=== PATIENT | male | born 1960 | race Caucasian/White ===

== ENCOUNTER 2017-04-14 04:11 | Inpatient (IN) ==
[2017-04-14 04:54] LABS: Bilirubin,Urine Negative (Negative); Blood,Urine Negative (Negative); Clarity,Urine Clear (Clear); Color,Urine Yellow (Yellow); Glucose,Urine (UA) Normal (Normal); Ketones,Urine Negative (Negative); Leukocyte Esterase,Urine Negative (Negative); Nitrite,Urine Negative (Negative); Protein,Urine Negative (Neg-Trace); Specific Gravity,Urine 1.016 (1.010-1.025); Urobilinogen,Urine Normal (Normal)
[2017-04-14 05:03] LABS: Basophils % 0.3 %; Eosinophils # 0.1 K/mcL (0.0-0.6); Eosinophils % 0.8 %; Hemoglobin 13.8 g/dL (12.9-16.9); Immature Granulocytes % 0.5 % (0-4); Lymphocytes # 1.6 K/mcL (0.6-4.6); Lymphocytes % 13.6 %; Mean Corpuscular HGB Conc 32.9 g/dL (31.6-35.5); Mean Corpuscular Hemoglobin 28.3 pg (28.0-33.3); Mean Corpuscular Volume 86.2 fL (83.0-100.0); Mean Platelet Volume 10.1 fL (9.4-12.4); Monocytes % 8.2 %; Platelet Count 211 K/mcL (140-400); Red Blood Count 4.87 M/mcL (4.19-5.50); Red Cell Distribution Width 13.2 % (11.5-14.5); Segmented Neutrophils % 76.6 %
--- NOTE | 2017-04-14 05:13 | Emergency Department Note ---
Disposition Clinical Impression: Acute appendicitis Qualifiers: Acute appendicitis type: with localized peritonitis Qualified Code(s): K35.3 - Acute appendicitis with localized peritonitis Disposition: Admitted As Inpatient Condition: Good Time of Disposition: 06:18 General Adult HPI - General Chief complaint: ED Abdominal Pain Stated complaint: "Abd Pain" Time Seen by Provider: 04/14/17 04:19 Source: patient, family Mode of arrival: ambulatory Limitations: no limitations Nursing Notes Reviewed: Yes Vital Signs Reviewed: Yes - History of Present Illness HPI Narrative: 56-year-old male presenting to the emergency department for right lower quadrant pain. He states for the past 2 days he has had an aching sharp pain located in his diffuse lower abdominal pain in a band like fashion. The pain has progressively been getting worse and as a 7 out of 10. It has now located mostly to the right lower quadrant. He has no history of abdominal surgeries in the past. He did have one episode of emesis yesterday. It was non-bilious and nonbloody. He has been feeling nauseous over the past 2 days that is does not experience this now. He has normal bowel movements and normal appetite. He did not try any treatments for this at home. Pain Scale: 7 - Related Data Home Medications Medication Instructions Recorded Confirmed Calcium Carbonate [Tums] 1,000 mg PO Q4HR PRN 04/14/17 04/14/17 Allergies Allergy/AdvReac Type Severity Reaction Status Date / Time No Known Allergies Allergy Verified 04/14/17 04:14 All systems ED: reviewed and negative except as stated. Gastrointestinal: Reports: abdominal pain, nausea, vomiting Past Medical History - Past Medical History Attestation: Yes The following information was validated with the patient. Source: patient Medical history: Reports: no medical history - Social History Smoking Status: Never smoker Smokeless Tobacco Status: No Alcohol use: Reports: occasionally Drug use: Reports: none Physical Exam - General Limitations: no limitations General appearance: alert, in no apparent distress - Head Head exam: atraumatic, normocephalic - Eye Eye exam: Present: normal appearance - Chest Chest inspection: Present: normal inspection, symmetric chest wall rise. Absent : tenderness - Respiratory Respiratory exam: Present: normal lung sounds bilaterally. Absent: respiratory distress, wheezes, stridor - Cardiovascular Cardiovascular exam: Present: regular rate, normal rhythm, normal heart sounds - Abdominal Exam Abdominal exam: Present: soft, tenderness (Mostly over the RLQ, extends in a band like fashion across the entire lower abdomen), guarding, rebound, tenderness at McBurney's Point. Absent: distention, rigidity, obturator sign, Rovsing's sign Abdominal tenderness: Present: RLQ - Extremities Exam Extremities exam: Present: normal inspection, full ROM - Neurological Exam Neurological exam: Present: alert, oriented X3 - Psychiatric Psychiatric exam: Present: normal affect - Skin Skin exam: Present: warm, dry, intact Course Course Narrative: 56-year-old male presenting to the emergency Department right lower quadrant pain due to his physical exam we will obtain a CT with IV contrast, CBC, BMP. - Reevaluation(s) Reevaluation #1: On CT acute appendicitis was seen. We put a call out to the on-call surgeon Dr. Cano. He has accepted the patient. Time: 06:17 Vital Signs Temperature 98.1 F 04/14/17 04:13 Pulse Rate 87 04/14/17 04:13 Respiratory Rate 18 04/14/17 04:13 Blood Pressure 168/102 04/14/17 04:13 O2 Sat by Pulse Oximetry 96 04/14/17 04:13 Temperature 98.5 F 04/17/17 11:42 Pulse Rate 90 04/17/17 11:42 Respiratory Rate 18 04/17/17 11:42 Blood Pressure 133/77 04/17/17 11:42 O2 Sat by Pulse Oximetry 93 04/17/17 11:42 Oxygen Delivery Oxygen Delivery Room Air Medical Decision Making - Medical Records Medical records reviewed: Yes I reviewed the patient's medical records. - Lab Data Lab results reviewed: Yes I reviewed the patient's lab results. Result diagrams: 04/17/17 03:55 04/16/17 04:36 Lab Results 04/14/17 04/14/17 04/14/17 Range/Units 04:40 04:55 04:55 WBC 11.7 H (4.3-11.1) K/mcL RBC 4.87 (4.19-5.50) M/mcL Hgb 13.8 (12.9-16.9) g/dL Hct 42.0 (37.5-50.1) % MCV 86.2 (83.0-100.0) fL MCH 28.3 (28.0-33.3) pg MCHC 32.9 (31.6-35.5) g/dL RDW 13.2 (11.5-14.5) % Plt Count 211 (140-400) K/mcL MPV 10.1 (9.4-12.4) fL Immature Gran % 0.5 (0-4) % Seg Neutrophils % 76.6 % Lymphocytes % 13.6 % Monocytes % 8.2 % Eosinophils % 0.8 % Basophils % 0.3 % Neutrophils # 9.0 H (1.6-8.9) K/mcL Lymphocytes # 1.6 (0.6-4.6) K/mcL Monocytes # 1.0 (0.0-1.3) K/mcL Eosinophils # 0.1 (0.0-0.6) K/mcL Basophils # 0.0 (0.0-0.2) K/mcL Sodium 136 (136-145) mEq/L Potassium 4.3 (3.5-4.5) mEq/L Chloride 102 (98-109) mEq/L Carbon Dioxide 26 (19-29) mEq/L BUN 11 (8-26) mg/dL Creatinine 0.85 (0.72-1.25) mg/dL Est GFR ( Amer) > 60 (> 60) Est GFR (Non-Af Amer) > 60 (> 60) BUN/Creatinine Ratio 13 (6-26) Glucose 116 H (70-99) mg/dL Calculated Osmolality 282 (280-300) Calcium 9.8 (8.6-10.8) mg/dL Urine Color Yellow (Yellow) Urine Clarity Clear (Clear) Urine pH 7.0 (5.0-8.0) pH Units Ur Specific Council 1.016 (1.010-1.025) Urine Protein Negative (Neg-Trace) mg/dL Urine Glucose (UA) Normal (Normal) mg/dL Urine Ketones Negative (Negative) mg/dL Urine Blood Negative (Negative) Urine Nitrite Negative (Negative) Urine Bilirubin Negative (Negative) Urine Urobilinogen Normal (Normal) mg/dL Ur Leukocyte Esterase Negative (Negative) Ur Culture Indicated? NO (NO) - Radiology Data Radiology results reviewed: Yes I reviewed the patient's radiology results. Attestation Statement - Attestation Attestation: I, Jc Castellano, examined this patient and my medical decision-making was reviewed with the TELEVISION ANTENNA INSTALLER/PA/Advanced Practice Nurse/Resident Physician. I agree with the documented findings, disposition and treatment plan as described except to the extent set forth below. 56-year-old male presents with concerns of right lower quadrant abdominal pain. Patient states pain is worsening over the past 2 days. Pain does not radiate from the right lower quadrant. On physical exam the patient has significant tenderness to palpation of the right lower quadrant with moderate guarding. CT of the abdomen and pelvis was performed which showed acute appendicitis. Resident spoke with Dr. cano who accepted the patient. Patient is comfortable with plan for admission to the hospital for likely surgery of his appendix.
[2017-04-14 05:17] LABS: BUN/Creatinine Ratio 13 (6-26); Blood Urea Nitrogen 11 mg/dL (8-26); Calcium 9.8 mg/dL (8.6-10.8); Carbon Dioxide 26 mEq/L (19-29); Chloride 102 mEq/L (98-109); Glucose 116 mg/dL (70-99); Osmolality,Calculated 282 (280-300); Potassium 4.3 mEq/L (3.5-4.5); Sodium 136 mEq/L (136-145); eGFR For African Americans > 60 (> 60); eGFR For Non-African Americans > 60 (> 60)
[2017-04-14] MEDS ORDERED: *HR* Morphine 2 MG/ML SYRINGE IVP ONE (05:44)
[2017-04-14] MEDS ORDERED: Bupivacaine/EPI 1:200k 0.25%PF 30 ML VIAL ONE (06:40)
[2017-04-14] MEDS ORDERED: *HR* Propofol 200 MG/20 ML VIAL IVP ONE (06:53)
[2017-04-14] MEDS ORDERED: *HR* FentaNYL (PF) 100 MCG/2 ML VIAL ONE (06:54)
[2017-04-14] MEDS ORDERED: Lidocaine -MPF 2% 2 ML VIAL ONE (06:54)
[2017-04-14] MEDS ORDERED: *HR* Rocuronium Bromide 50 MG/5 ML VIAL ONE (06:54)
[2017-04-14] MEDS ORDERED: *HR* Succinylcholine 200 MG/10 ML VIAL IVP ONE (06:54)
[2017-04-14] MEDS ORDERED: *HR* Midazolam HCl 2 MG/2 ML VIAL ONE (06:54)
[2017-04-14] MEDS ORDERED: Lidocaine -MPF 4% 5 ML AMPUL ONE (06:54)
--- NOTE | 2017-04-14 07:24 | Anesthesia Evaluation PreOp ---
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 Significant HX Other Medical History: Denies Any Significant HX, GERD (Hiatal Hernia) Anesthesia History: No Prior Anesthetic Complications Alcohol Use: occasionally Drug use: none Medications and Allergies Calcium Carbonate [Tums] 1,000 mg PO Q4HR PRN 04/14/17 [History] Allergies No Known Allergies Allergy (Verified 04/14/17 04:14) Anesthesia Results - Labs 04/14/17 04:55 04/14/17 04:55 Anesthesia Exam vss Weight: 93kg NPO (# of Hours): 8 Pain Scale: 2 Pain Scale Used: Numeric (1 - 10) - HEENT Pupil (Motor): Pupils equal Mallampati: II Teeth: Normal Oral Opening: Greater than 3 - THREAD PULLING MACHINE ATTENDANT THREAD PULLING MACHINE ATTENDANT Motor: Normal RUE, Normal LUE, Normal RLE, Normal LLE, Normal Face THREAD PULLING MACHINE ATTENDANT Sensory: Normal: RUE, LUE, RLE, LLE, Face - Cardiac Rhythm: Regular - Pulmonary Breath Sounds: bilateral Clear Anesthesia Assess/Plan ASA Score: 2, E Modified [place] Scale for Level of Consciousness: Cooperative, oriented, and tranquil Anesthetic Plan: General Autologous Blood: No Monitoring Plan: Standard Monitors Recovery Plan: PACU
--- NOTE | 2017-04-14 07:30 | General Surg History&Physical ---
Date of Encounter: 04/14/17 Time of Encounter: 06:50 History of Present Illness Chief complaint: Right lower quadrant abdominal pain, acute appendicitis HPI: Mr. Muse is a 56 year old male presents to [facility] EGD with 2 day history of progressive right lower quadrant abdominal pain. The patient described emesis yesterday but no recurrence last evening or this morning in the emergency department. Symptoms have progressed in severity prompting the patient to seek medical attention. The patient was found to be acutely tender in the right lower quadrant, white count was minimally elevated at 11.7, and CT demonstrated a markedly dilated appendix with stones and significant periappendiceal and pericecal fat stranding consistent with acute appendicitis. Past medical history: Unremarkable, there is no acknowledged history of retention, diabetes, heart or lung disease. Surgical history: None Allergies: No known drug allergies Medications: None History: Patient is , lives with spouse; he is a former smoker indicating that he quit smoking in 1997. He indicates prior history of 2-2-1/2 packs daily for approximately 15 years. The patient admits to consuming alcohol 3 days a week; he denies any illicit drug use On physical examination: Age-appropriate male in no acute distress, resting comfortably in his ED bed. He is 1.75 m tall, 93.8 kg, BMI 30.5 Skin: Warm, no obvious jaundice Lungs: Clear bilaterally; no obvious pain on deep inspiration Cardiac: Regular rate, no appreciable murmurs Abdomen: Slightly protuberant, tender in the right lower quadrant, minimal right lower quadrant abdominal pain when palpating the left lower quadrant. Hypoactive bowel sounds. No appreciable intra-abdominal masses. Extremities: Without clubbing, cyanosis, or edema. Laboratories: Her count 11.7, hemoglobin 13.8, hematocrit 42.0. Platelet count 211,000. Neutrophils notably elevated at 9% Electrolytes, BUN, creatinine within normal limits. Urinalysis is unremarkable. CT: Was personally reviewed Impression: 56-year-old male with new onset right lower quadrant abdominal pain. Clinical and radiologic findings consistent with acute appendicitis. Surgery has been recommended. The patient is a reasonable candidate for laparoscopic appendectomy but understands an open appendectomy may become necessary. Risks of surgery include hemorrhage, infection, intra- abdominal abscess, injury to adjacent structures such as bowel, bladder, ureters, etc. if a normal appendix is encountered, it will be removed. The patient and his expressed understanding. Consent has been obtained. Past Med Surg Social Fam HX - Past Medical History Medical history: no medical history - Social History Smoking Status: Never smoker Smokeless Tobacco Status: No Alcohol use: occasionally Drug use: none Medications and Allergies Calcium Carbonate [Tums] 1,000 mg PO Q4HR PRN 04/14/17 [History] Allergies No Known Allergies Allergy (Verified 04/14/17 04:14) Review of Systems All systems PM: A 10-system review of systems was performed and is negative for pertinent findings except as documented above in the HPI. General Surgery Exam Initial Vital Signs Temp Pulse Resp BP Pulse Ox 98.1 F 87 18 168/102 96 04/14/17 04:13 04/14/17 04:13 04/14/17 04:13 04/14/17 04:13 04/14/17 04:13 Results - Labs 04/14/17 04:55 04/14/17 04:55 Abnormal lab results WBC 11.7 K/mcL (4.3-11.1) H 04/14/17 04:55 Neutrophils # 9.0 K/mcL (1.6-8.9) H 04/14/17 04:55 Glucose 116 mg/dL (70-99) H 04/14/17 04:55 All other labs normal.
[2017-04-14] MEDS ORDERED: CefOXitin 2,000 MG VIAL IVPB ONE (07:39)
[2017-04-14] MEDS ORDERED: *HR* HYDROmorphone (PF) 1 MG/ML SYRINGE IVP PRN (07:54)
[2017-04-14] MEDS ORDERED: *HR* Promethazine 25 MG/ML VIAL IVP PRN (07:54)
[2017-04-14] MEDS ORDERED: Albuterol 2.5 MG/3 ML NEBULIZER IH PRN (07:54)
[2017-04-14] MEDS ORDERED: Neostigmine Methylsulfate 3 MG/3 ML SYRINGE ONE (08:08)
[2017-04-14] MEDS ORDERED: Ketorolac 30 MG/ML VIAL ONE (08:09)
[2017-04-14] MEDS ORDERED: Bupivacaine/EPI 1:200k 0.25%PF 10 ML VIAL INFILT ONE (08:17)
[2017-04-14] MEDS ORDERED: *HR* HYDROmorphone 2 MG/ML SYRINGE ONE (08:39)
--- NOTE | 2017-04-14 09:34 | Operative Note ---
Date of procedure: 04/14/17 Pre-op diagnosis: acute appendicitis Post-op diagnosis: other (acute perforated appendicitis) Procedure: laparoscopy, open appendectomy Complications: none apparent Anesthesia: GETA Local Anesthetics: 0.25% Sensorcaine HCL with Epinephrine 1:200,000 SubQ (cc) ( 50mL) Surgeon: Jcarlos Cruz Estimated blood loss (cc): 10 IV fluids (cc): 750 Specimen: appendix; aerobic and anaerobic cultures Condition: stable Disposition: PACU Procedure in Detail: The patient was brought to the operating room where he was placed supine upon the operating room table. The patient was appropriately identified as to person and procedure. The accuracy of this information was confirmed by the procedure team. The patient was then intubated and anesthetized under the supervision of Dr. Jared Morgan. The abdomen was examined under anesthesia with no palpable masses detected. The abdomen was then prepped and draped in the usual sterile fashion. Several milliliters of 0.25% bupivacaine with 1-200, 000 epinephrine was infiltrated locally. A small transverse incision was made, dissection was distended to the fascia. Additional bupivacaine with epinephrine was infiltrated. The fascia was grasped, elevated, and incised. An 11 mm Xcel port was established. The rigid laparoscope was placed within the obturator to visualize passage through the layers of the anterior abdominal wall. Once the abdominal cavity was accessed, the obturator was replaced by the rigid laparoscope and the abdomen was insufflated with gaseous carbon dioxide. There was no obvious visible injury from establishing the port. Under direct visualization a 5 mm port was placed in the superpubic midline, a 12 mm port was established in the left lower quadrant midclavicular line. Both of these sites were infiltrated with the bupivacaine with epinephrine solution. The cecum was identified, grasped and elevated with a 5 mm endoscopic [place]. An acutely inflamed, necrotic appendix was identified in its usual anatomic location. The cecum demonstrated adjacent inflammatory changes. The majority of the inflammation was at the junction of the appendix with the cecum. With minimal manipulation, pus was evident exiting the appendix at its junction with the cecum. This prompted me to abandon the laparoscopic approach. The pneumoperitoneum was evacuated, the laparoscopic instrumentation removed. Several milliliters of 0.25% bupivacaine with 1-200,000 units epinephrine was infiltrated into a planned transverse incision just cephalad and medial to the anterior superior iliac spine, right lower quadrant. The skin was incised with dissection ended to the aponeurosis of the external oblique. Bleeding points were controlled electrocautery. The aponeurosis external oblique was then incised transversely, the underlying musculature was split in the direction of its fibers. The transversalis fascia was identified, grasped with 2 Krystal clamps and elevated. The fascia was incised allowing atraumatic entry into the abdominal cavity. The cecum was mobilized along with the appendix. The appendix was eventually exteriorized. The perforation was again verified adequate the junction between the cecum and the appendix. Aerobic and anaerobic cultures discharge at this location were obtained. The mesial appendix was divided between curved hemostats and ligated with 3-0 silk. The appendix was transected at its junction with the cecum. The cecal wall was inflamed and thickened, precluding the use of a TX 30 mm stapler. The appendiceal orifice was suture-ligated with several interrupted 3-0 silk. The entire area and right paracolic gutter were irrigated with sterile saline which was evacuated with the suction device. Hemostasis was adequate and the appendiceal orifice suture line appeared healthy/intact. The small bowel was examined with no other abnormalities encountered. The cecum was returned to its usual anatomic location. Closure was then accomplished in layers, the peritoneum was closed with a running interlocking 0 Vicryl. The posterior rectus sheath was closed with running interlocking 0 Vicryl. The anterior rectus sheath and the aponeurosis of the external oblique was closed with interrupted [id number] 0 Vicryl. Each of the layers was infiltrated with several milliliters of 0.25% bupivacaine with 1-200,000 epinephrine after completion of the closure. The subcutaneous tissue was irrigated with warm sterile saline and approximated with 3-0 Vicryl. The skin edges of the transverse incision were approximated with isrrael. The port sites created for the laparoscopic portion was procedure were closed with subcuticular 4-0 Vicryl and sealed with Dermabond dermal adhesive. I should make note that the fascia of the infraumbilical opening was closed with an interrupted [id number] 0 Vicryl with a gloved hand placed intra-abdominally to protect the intra- abdominal contents. A dry sterile dressing was applied to the transverse incision. The patient was taken to recovery in stable condition. Needle, sponge, and instrument counts were correct at the close of the case. Total volume of 0.25% bupivacaine with 1-200,000 units epinephrine used during this procedure, 50 mL. The appendix, aerobic and anaerobic cultures were sent to lab.
[2017-04-14] MEDS ORDERED: Ondansetron 4 MG/2 ML VIAL IVP PRN (09:38)
[2017-04-14] MEDS ORDERED: Acetaminophen 325 MG TABLET PO PRN (09:38)
[2017-04-14] MEDS ORDERED: Piperacillin/Tazobactam 3.375 GM in D5% in Water (Mini-Bag+) 100 ML IVPB STA (09:38)
[2017-04-14] MEDS ORDERED: Ringers Solution, Lactated 1,000 ML ONE (09:46)
--- NOTE | 2017-04-14 10:11 | Anesthesia Evaluation Post Op ---
Date of Encounter: 04/14/17 Time of Encounter: 10:11 - Vital Signs Vital Signs: Vital Signs/O2 Sat, Most Current Temp Pulse Resp BP Pulse Ox 97.7 F 77 16 121/78 94 04/14/17 09:28 04/14/17 09:48 04/14/17 09:48 04/14/17 09:48 04/14/17 09:48 - Lungs Lungs: Clear Ascult./Percussion - Airway Airway: Non-obstructed - Cardiovascular Regular Rate - Mental Status Mental Status: Alert & Oriented, Answers Appropriately - Pain Pain Scale: 0 Pain Scale used: Numeric (1 - 10) - Nausea Vomiting Nausea Vomiting: Not Present - Hydration Hydration: NPO, Has not voided - Discharge PostOp Status: Transfer Patient to floor
[2017-04-14] MEDS: *HR* HYDROmorphone (PF) 1 MG/ML SYRINGE IVP PRN ×3 (10:50→23:58)
[2017-04-14] MEDS ORDERED: Ringers Solution, Lactated 500 ML IVC ONE (11:32)
[2017-04-14] MEDS: Ringers Solution, Lactated 1,000 ML IVC SCH (11:38)
[2017-04-14] MEDS: *HR* OxyCODONE/APAP 5/325 TABLET PO PRN ×2 (13:56→19:58)
[2017-04-14] MEDS: Piperacillin/Tazobactam 3.375 GM in D5% in Water (Mini-Bag+) 100 ML IVPB SCH (15:49)
[2017-04-14] MEDS ORDERED: Pantoprazole 40 MG VIAL IVP ONE (19:47)
[2017-04-15] MEDS: Ringers Solution, Lactated 1,000 ML IVC SCH ×2 (00:02→09:46)
[2017-04-15] MEDS: Piperacillin/Tazobactam 3.375 GM in D5% in Water (Mini-Bag+) 100 ML IVPB SCH ×3 (00:02→16:12)
[2017-04-15] MEDS: *HR* OxyCODONE/APAP 5/325 TABLET PO PRN ×3 (03:11→15:13)
[2017-04-15 06:30] LABS: Hematocrit 35.7 % (37.5-50.1); Mean Corpuscular HGB Conc 33.3 g/dL (31.6-35.5); Mean Corpuscular Hemoglobin 29.3 pg (28.0-33.3); Mean Corpuscular Volume 87.9 fL (83.0-100.0); Mean Platelet Volume 11.2 fL (9.4-12.4); Platelet Count 191 K/mcL (140-400); Red Blood Count 4.06 M/mcL (4.19-5.50); Red Cell Distribution Width 13.5 % (11.5-14.5)
[2017-04-15 06:40] LABS: Hemoglobin 11.9 g/dL (12.9-16.9)
[2017-04-15] MEDS: *HR* HYDROmorphone (PF) 1 MG/ML SYRINGE IVP PRN ×2 (07:28→14:00)
[2017-04-15 07:34] LABS: Monocytes # 0.2 K/mcL (0.0-1.3); Neutrophils # 8.4 K/mcL (1.6-8.9); Platelet Estimate Normal (Normal)
[2017-04-15] MEDS: Pantoprazole 40 MG VIAL IVP SCH (08:12)
[2017-04-15] MEDS: Albuterol 2.5 MG/3 ML NEBULIZER IH SCH ×3 (16:07→23:05)
--- NOTE | 2017-04-15 18:12 | General Surgery Progress Note ---
Date of Encounter: 04/15/17 Time of Encounter: 17:15 Subjective Patient reports: feels better, still having pain Narrative: General Surgery - POD #1 Afebrile, maximum temperature 99.0; pulse 90, respirations 16, blood pressure 119/72. Lungs: Rales in the right base, moderate inspiratory effort but weak, ineffective cough. Chest x-ray shows right middle and right lower lobe infiltrates. Likely due to recent surgery for an acutely perforated appendicitis Abdomen: Soft, hypoactive bowel sounds. Port sites and incision clean and dry. Dressings removed. Urine output 2100 mL since surgery Laboratories: White count 11.7, hemoglobin 11.9, hematocrit 35.7, platelet count 191,000. Pathology pending Impression: Postoperative day 1, status post laparoscopy converted to open appendectomy for acutely perforated appendicitis Postoperative atelectasis with audible rales and radiologic evidence of right -sided infiltrates Patient encouraged to increase incentive spirometry; increase activity out of bed; will add aerosols. Continue IV antibiotics Objective Vital Signs - Last 8 Hours Temp Pulse Resp BP Pulse Ox 04/15/17 16:09 16 96 04/15/17 14:30 99 F 90 16 119/72 94 04/15/17 10:50 98.2 F 76 17 130/76 94 Intake and Output 04/15/17 04/15/17 04/15/17 07:59 15:59 23:59 Intake Total 1150 / 1150 2060 / 2060 Output Total 500 / 500 900 / 900 700 / 700 Balance 650 / 650 1160 / 1160 -700 / -700 Intake: IV Fluids 1150 / 1150 1000 / 1000 Lactated Ringers 1,000 ML 950 / 950 900 / 900 @ 100 mls/hr IVC .Q10H DARLENE Rx#:[id number] Zosyn 3.375 GM In 200 / 200 100 / 100 Dextrose 5% (Minibag+) 100 ML 100 ML @ 25 mls/hr IVPB Q8H DARLENE Rx#: [id number] Oral 0 / 0 1060 / 1060 Output: Urine 500 / 500 900 / 900 700 / 700 Other: Percent of Meal Consumed 0% Weight 93.44 kg Patient Weight 04/15/17 23:59 Weight 93.44 kg - Labs 04/15/17 05:03 04/14/17 04:55 - VTE Documentation of Mechanical Device: Intermittent pneumatic compression device Consult Discharge Plan - Plan Referrals: Jcarlos Cruz MD [Non-Partnered Physician] -
[2017-04-15] MEDS: *HR* OxyCODONE/APAP 10/325 TABLET PO PRN (21:48)
[2017-04-15] MEDS: D5% in 0.45% NACL 1,000 ML IVC SCH (21:49)
[2017-04-16] MEDS: Piperacillin/Tazobactam 3.375 GM in D5% in Water (Mini-Bag+) 100 ML IVPB SCH ×4 (00:06→23:40)
[2017-04-16] MEDS: *HR* HYDROmorphone (PF) 1 MG/ML SYRINGE IVP PRN ×3 (00:21→13:25)
[2017-04-16] MEDS: Albuterol 2.5 MG/3 ML NEBULIZER IH SCH ×6 (03:00→23:14)
[2017-04-16] MEDS: *HR* OxyCODONE/APAP 10/325 TABLET PO PRN ×3 (04:05→18:37)
[2017-04-16 05:22] LABS: Basophils % 0.2 %; Eosinophils % 0.4 %; Hematocrit 34.5 % (37.5-50.1); Hemoglobin 10.9 g/dL (12.9-16.9); Immature Granulocytes % 0.6 % (0-4); Lymphocytes # 1.3 K/mcL (0.6-4.6); Lymphocytes % 14.5 %; Mean Corpuscular HGB Conc 31.6 g/dL (31.6-35.5); Mean Corpuscular Hemoglobin 28.2 pg (28.0-33.3); Mean Corpuscular Volume 89.1 fL (83.0-100.0); Mean Platelet Volume 10.3 fL (9.4-12.4); Monocytes # 0.7 K/mcL (0.0-1.3); Monocytes % 7.3 %; Neutrophils # 6.9 K/mcL (1.6-8.9); Platelet Count 194 K/mcL (140-400); Red Blood Count 3.87 M/mcL (4.19-5.50); Red Cell Distribution Width 13.5 % (11.5-14.5)
[2017-04-16 05:46] LABS: BUN/Creatinine Ratio 11 (6-26); Blood Urea Nitrogen 12 mg/dL (8-26); Calcium 8.6 mg/dL (8.6-10.8); Carbon Dioxide 28 mEq/L (19-29); Chloride 100 mEq/L (98-109); Glucose 117 mg/dL (70-99); Osmolality,Calculated 279 (280-300); Sodium 134 mEq/L (136-145); eGFR For African Americans > 60 (> 60); eGFR For Non-African Americans > 60 (> 60)
[2017-04-16] MEDS: Pantoprazole 40 MG VIAL IVP SCH (09:06)
[2017-04-16] MEDS: D5% in 0.45% NACL 1,000 ML IVC SCH (12:33)
--- NOTE | 2017-04-16 13:47 | General Surgery Progress Note ---
Date of Encounter: 04/16/17 Time of Encounter: 13:40 Subjective Narrative: General Surgery - POD #2 Patient feels better but passing no flatus; no BM Afebrile, her only 98.3, pulse 98 (after a walk around the nursing unit); respiration 16, blood pressure 132/74. Lungs: Persistent rales right base improved with better inspiratory effort. Cardiac: Regular rate, no appreciable murmurs Abdomen: Distended, quiet. Incisions clean and dry. Urine output: 2750 mL for calendar day 04/15/17; 1550 mL so far today. Labs: White count has returned to normal, 8.9; hemoglobin 10.9 and hematocrit 34.5 - likely due to dilutional effects (nola operative fluids) Sodium 134 otherwise electrolytes BUN and creatinine within normal limits. Pathology pending Impression: Postoperative day 2, does post laparoscopy converted to open appendectomy for acute perforated appendicitis. Very little bowel activity detected - maintain a clear liquid diet until bowel activity improves. patient has increased activity out of bed - this should help restore bowel activity atelectasis right lower and right middle lobes - continue activity OOB and incentive spirometry. Objective Vital Signs - Last 8 Hours Temp Pulse Resp BP Pulse Ox 04/16/17 11:00 98.3 F 98 16 132/74 94 04/16/17 08:26 16 89 04/16/17 07:11 98.5 F 89 16 104/66 93 Intake and Output 04/15/17 04/16/17 04/16/17 23:59 07:59 15:59 Intake Total 220 / 220 101 / 101 1000 / 1000 Output Total 1350 / 1350 1550 / 1550 Balance -1130 / -1130 -1449 / -1449 1000 / 1000 Intake: IV Fluids 100 / 100 100 / 100 1000 / 1000 D5% And 0.45% Nacl 1000 1000 / 1000 Ml Bag 1,000 ML @ 60 mls/ hr IVC .[id number] DARLENE Rx#: [id number] Zosyn 3.375 GM In 100 / 100 100 / 100 Dextrose 5% (Minibag+) 100 ML 100 ML @ 25 mls/hr IVPB Q8H DARLENE Rx#: [id number] Oral 120 / 120 1 / 1 Output: Urine 1350 / 1350 1550 / 1550 Other: Percent of Meal Consumed 0% Weight 93.395 kg Patient Weight 04/16/17 23:59 Weight 93.395 kg - Labs 04/16/17 04:36 04/16/17 04:36 Diabetes panel 04/16/17 Range/Units 04:36 Sodium 134 L (136-145) mEq/L Potassium 4.0 (3.5-4.5) mEq/L Chloride 100 (98-109) mEq/L Carbon Dioxide 28 (19-29) mEq/L BUN 12 (8-26) mg/dL Creatinine 1.05 (0.72-1.25) mg/dL Glucose 117 H (70-99) mg/dL Calcium 8.6 (8.6-10.8) mg/dL Calcium panel 04/16/17 Range/Units 04:36 Calcium 8.6 (8.6-10.8) mg/dL Pituitary panel 04/16/17 Range/Units 04:36 Sodium 134 L (136-145) mEq/L Potassium 4.0 (3.5-4.5) mEq/L Chloride 100 (98-109) mEq/L Carbon Dioxide 28 (19-29) mEq/L BUN 12 (8-26) mg/dL Creatinine 1.05 (0.72-1.25) mg/dL Glucose 117 H (70-99) mg/dL Calcium 8.6 (8.6-10.8) mg/dL Adrenal panel 04/16/17 Range/Units 04:36 Sodium 134 L (136-145) mEq/L Potassium 4.0 (3.5-4.5) mEq/L Chloride 100 (98-109) mEq/L Carbon Dioxide 28 (19-29) mEq/L BUN 12 (8-26) mg/dL Creatinine 1.05 (0.72-1.25) mg/dL Glucose 117 H (70-99) mg/dL Calcium 8.6 (8.6-10.8) mg/dL - VTE Documentation of Mechanical Device: Intermittent pneumatic compression device Consult Discharge Plan - Plan Referrals: Jcarlos Cruz MD [Non-Partnered Physician] -
[2017-04-16] MEDS ORDERED: *HR* HYDROmorphone (PF) 1 MG/ML SYRINGE IVP PRN (13:48)
[2017-04-17] MEDS: *HR* OxyCODONE/APAP 10/325 TABLET PO PRN ×3 (00:44→15:13)
[2017-04-17] MEDS: Albuterol 2.5 MG/3 ML NEBULIZER IH SCH ×6 (04:13→23:05)
[2017-04-17 04:54] LABS: Basophils % 0.4 %; Eosinophils # 0.1 K/mcL (0.0-0.6); Eosinophils % 1.1 %; Hematocrit 33.1 % (37.5-50.1); Hemoglobin 10.8 g/dL (12.9-16.9); Immature Granulocytes % 0.9 % (0-4); Lymphocytes # 1.3 K/mcL (0.6-4.6); Lymphocytes % 15.4 %; Mean Corpuscular HGB Conc 32.6 g/dL (31.6-35.5); Mean Corpuscular Volume 88.7 fL (83.0-100.0); Monocytes # 0.6 K/mcL (0.0-1.3); Monocytes % 7.8 %; Platelet Count 236 K/mcL (140-400); Red Blood Count 3.73 M/mcL (4.19-5.50); Red Cell Distribution Width 13.3 % (11.5-14.5); Segmented Neutrophils % 74.4 %
[2017-04-17] MEDS: Pantoprazole 40 MG VIAL IVP SCH (09:43)
[2017-04-17] MEDS: Piperacillin/Tazobactam 3.375 GM in D5% in Water (Mini-Bag+) 100 ML IVPB SCH ×2 (09:44→17:42)
[2017-04-17] MEDS: D5% in 0.45% NACL 1,000 ML IVC SCH (11:26)
--- NOTE | 2017-04-17 15:31 | General Surgery Progress Note ---
Date of Encounter: 04/17/17 Time of Encounter: 15:18 Subjective Patient reports: still having pain, no flatus, no bowel movement Narrative: General Surgery - POD#3 Patient continues to complain of incisional pain; abdominal distention persists, no fevers or chills. No nausea or vomiting. No flatus or BM to date Patient remains afebrile; currently 98.5; pulse 90, respirations 18, blood pressure 133/77. SPO2 on room air 93-94%. Lungs: Clear to auscultation with good inspiratory effort Cardiac: Regular rate, no appreciable murmurs Abdomen: Distended; erythematous lateral to the transverse incision right lower quadrant. A small amount of seropurulent drainage apparent. The lateral 4 skin isrrael were removed - the skin edges and prepped with Betadine. With this maneuver, no additional drainage was encountered were produced. A dry sterile gauze dressing was placed, covered with ABD. Rectum: Copious soft brown stool by CARLIN Labs: White count 8.1, hemoglobin 10.8 with hematocrit 33.1; differential within normal limits. Pathology: Acute appendicitis; the appendix was 7.6 cm long, 1.36 cm in diameter. Focal areas of disrupted serosa were described but no perforation as mentioned. The appendix encountered at the time of surgery was perforated at the junction with the cecum. Impression: Postoperative day 3, status post laparoscopy converted to open appendectomy for an acutely perforated appendicitis Persistent abdominal distention - likely due to postoperative ileus. Superficial wound infection - partial lateral portion of the incision opened , dry sterile gauze dressing applied. Copious brown stool in the ampulla Plan: dry gauze dressings to incision BID Fleet enema continue zosyn Objective Vital Signs - Last 8 Hours Temp Pulse Resp BP Pulse Ox 04/17/17 11:42 98.5 F 90 18 133/77 93 04/17/17 10:28 18 94 04/17/17 07:25 98.4 F 88 18 130/78 94 Intake and Output 04/16/17 04/17/17 04/17/17 23:59 07:59 15:59 Intake Total 100 / 100 220 / 220 100 / 100 Output Total 1000 / 1000 780 / 780 0 / 0 Balance -900 / -900 -560 / -560 100 / 100 Intake: IV Fluids 100 / 100 100 / 100 100 / 100 Zosyn 3.375 GM In 100 / 100 100 / 100 100 / 100 Dextrose 5% (Minibag+) 100 ML 100 ML @ 25 mls/hr IVPB Q8H [facility] Rx#: [id number] Oral 0 / 0 120 / 120 Output: Urine 1000 / 1000 780 / 780 0 / 0 Other: Meal Dinner Percent of Meal Consumed 0% Weight 92.986 kg Blood Glucose* 139 Patient Weight 04/17/17 23:59 Weight 92.986 kg - Labs 04/17/17 03:55 04/16/17 04:36 - VTE Documentation of Mechanical Device: Intermittent pneumatic compression device Consult Discharge Plan - Plan Referrals: Jcarlos Cruz MD [Non-Partnered Physician] -
[2017-04-17] MEDS ORDERED: *HR* HYDROmorphone (PF) 1 MG/ML SYRINGE IVP PRN (15:35)
[2017-04-17] MEDS: *HR* OxyCODONE/APAP 5/325 TABLET PO PRN (21:40)
[2017-04-18] MEDS: Piperacillin/Tazobactam 3.375 GM in D5% in Water (Mini-Bag+) 100 ML IVPB SCH ×2 (00:06→10:07)
[2017-04-18] MEDS: Albuterol 2.5 MG/3 ML NEBULIZER IH SCH ×5 (03:50→19:59)
[2017-04-18] MEDS: *HR* OxyCODONE/APAP 5/325 TABLET PO PRN ×4 (04:11→20:38)
--- NOTE | 2017-04-18 10:07 | General Surgery Progress Note ---
Date of Encounter: 04/18/17 Time of Encounter: 09:50 Subjective Patient reports: feels better Narrative: General Surgery - POD#4 Patient feeling better; abdominal distention is diminished, she has moved his bowels in response to a Fleet enema administered yesterday The patient is afebrile, currently 98.7, maximum temperature 99.0; pulse 83, respirations 15, blood pressure 155/89 Lungs: Clear; no abdominal pain with deep inspiration. Chest x-ray shows persistent patchy opacification of the right lung base. Perhaps minimal improvement linear opacity left mid lung Abdomen: Less distended, active bowel sounds. Minimal right lower quadrant tenderness. Port sites clean and dry Transverse incision right lower quadrant with minimal serous drainage. The erythema noted lateral right lower anterior abdominal wall diminished. Laboratories: White count 8.1, hemoglobin 10.8 with hematocrit 33.1 differential within normal limits. Impression: Postoperative day #4, status post laparoscopy converted to open appendectomy for acute perforated appendicitis Postoperative atelectasis Postoperative ileus - resolved Postoperative anemia - likely due to dilution Plan: Advance diet, discontinue IV and Zosyn, Cipro 500 mg by mouth twice a day. Continue incentive spirometry and aggressive pulmonary toilet Objective Vital Signs - Last 8 Hours Temp Pulse Resp BP Pulse Ox 04/18/17 08:45 98.7 F 83 15 155/89 94 04/18/17 03:47 99.0 F 85 16 145/95 94 Intake and Output 04/17/17 04/18/17 04/18/17 23:59 07:59 15:59 Intake Total 220 / 220 100 / 100 Output Total 700 / 700 500 / 500 900 / 900 Balance -480 / -480 -400 / -400 -900 / -900 Intake: IV Fluids 100 / 100 100 / 100 Zosyn 3.375 GM In 100 / 100 100 / 100 Dextrose 5% (Minibag+) 100 ML 100 ML @ 25 mls/hr IVPB Q8H [facility] Rx#: [id number] Oral 120 / 120 0 / 0 Output: Urine 700 / 700 500 / 500 900 / 900 Other: Meal Dinner Stool Size Small Stool Consistency soft Stool Color Brown # Bowel Movements 1 Weight 93.848 kg Patient Weight 04/18/17 23:59 Weight 93.848 kg - Labs 04/17/17 03:55 04/16/17 04:36 - VTE Documentation of Mechanical Device: Intermittent pneumatic compression device Consult Discharge Plan - Plan Referrals: Jcarlos Cruz MD [Non-Partnered Physician] -
[2017-04-18] MEDS: D5% in 0.45% NACL 1,000 ML IVC SCH (10:10)
[2017-04-18] MEDS: Ringers Solution, Lactated 1,000 ML IVC SCH (10:11)
[2017-04-19] MEDS: Albuterol 2.5 MG/3 ML NEBULIZER IH SCH ×4 (00:28→11:25)
[2017-04-19] MEDS: *HR* OxyCODONE/APAP 5/325 TABLET PO PRN ×3 (00:39→09:05)
[2017-04-19 11:05] VITALS: BP 147/82
--- NOTE | 2017-04-19 12:39 | General Surgery Progress Note ---
Date of Encounter: 04/19/17 Time of Encounter: 12:27 Subjective Patient reports: feels better, flatus, bowel movement Narrative: General Surgery - POD #5 - progress note / discharge summary Patient feeling better; abdominal distention diminished. No nausea vomiting. Afebrile, currently 97.9, pulse 80, respirations 16, blood pressure 147/82. Lungs: Clear bilaterally, significantly improved inspiratory effort. No rales or wheezes detected Cardiac: Regular rate, no appreciable murmurs Abdomen: Soft, minimal nola-incisional tenderness in the right lower quadrant. Active bowel sounds. Port sites and transverse incision in the right lower quadrant all clean and healing well. Moderate serous drainage from the open portion of the transverse incision in the right lower quadrant. Impression: Postoperative day 5, status post laparoscopy converted to open appendectomy for acute perforated appendicitis. Postoperative atelectasis right lower lung and left mid lung Postoperative ileus resolved Postoperative anemia - does not require any intervention, likely to resolve as patient mobilizes his perioperative fluids Acceptable postoperative status for discharge. Brief history: 66-year-old male, referred to surgical services, 04/14/17, after presenting to the emergency room with a 2 day history of progressive right lower quadrant abdominal pain. Mild leukocytosis, 11.[address] of the abdomen and pelvis demonstrated a markedly dilated appendix with stones and significant periappendiceal and pericecal fat stranding. The patient was seen in the emergency department with the recommendation for surgery. The patient was taken to surgery with findings of an acutely inflamed, disrupted appendix. The disruption was at the junction of the appendix with the cecum. Laparoscopy was initiated however converted open when the acutely inflamed disrupted appendix was encountered. Pathology described acute appendicitis without mention of perforation though focal areas disrupted serosa was noted. Postoperative course was notable for persistent abdominal distention, with slow return of bowel function, consistent with an ileus. The patient demonstrated postoperative atelectasis due to inadequate pulmonary toilet and cough the first 24 hours postop. This likely exacerbated the postoperative ileus. The patient's status slowly improved, until he was ready for discharge on postoperative day 5, 04/19/17. Discharge instructions: Regular diet Patient may shower, wash incisions with soap and water Patient to apply heat to the transverse incision right lower quadrant, with caution against thermal injury Activities as tolerated; lifting limited to less than 20 pounds Follow-up my office, 04/23/2017 Tylenol, ibuprofen, Motrin, Advil, Aleve, etc. as needed for pain Prescription for Percocet 5/325, #10, one every 6 hours as needed for pain not relieved by [id number] medications Prescription for ciprofloxacin 500 mg, one every 12 hours for the next 5 days. Objective Vital Signs - Last 8 Hours Temp Pulse Resp BP Pulse Ox 04/19/17 11:25 16 94 04/19/17 11:04 97.9 F 80 17 147/82 96 04/19/17 07:14 98.1 F 74 15 137/80 95 Intake and Output 04/18/17 04/19/17 04/19/17 23:59 07:59 15:59 Intake Total 480 / 480 1300 / 1300 480 / 480 Output Total 550 / 550 400 / 400 550 / 550 Balance -70 / -70 900 / 900 -70 / -70 Intake: Oral 480 / 480 1300 / 1300 480 / 480 Output: Urine 550 / 550 400 / 400 550 / 550 Other: Meal Dinner Breakfast Percent of Meal Consumed 75% 25% Weight 92.714 kg Patient Weight 04/19/17 23:59 Weight 92.714 kg - Labs 04/17/17 03:55 04/16/17 04:36 - VTE Documentation of Mechanical Device: Intermittent pneumatic compression device Consult Discharge Plan - Plan Referrals: Jcarlos Cruz MD [Non-Partnered Physician] -
--- NOTE | 2017-04-19 12:44 | Discharge Summary ---
Outpatient Proc Discharge Plan - Plan Additional Instructions: Regular diet Patient may shower, wash incisions with soap and water Activity as tolerated, lifting limited to less than 20 pounds Patient apply heat to the transverse incision in the right lower quadrant with caution against thermal injury Follow-up my office, 04/23/17 Tylenol, ibuprofen, Motrin, Advil, Aleve, etc. as needed for pain Prescription for Percocet 5/325, #10, one every 6 hours as needed for pain not relieved by [id number] medications Restriction for Cipro 500 mg, #10, one every 12 hours for the next 5 days Prescriptions: Ciprofloxacin [Cipro] 500 mg PO BID #10 tab OxyCODONE/APAP 5/325 [Percocet 5/325 MG] 1 each PO Q6H PRN #10 tab PRN Reason: Pain Home Medications: Calcium Carbonate [Tums] 1,000 mg PO Q4HR PRN 04/14/17 [History] Acetaminophen [Tylenol] 650 mg PO Q6HR PRN tab 04/19/17 [Rx] Ciprofloxacin [Cipro] 500 mg PO BID #10 tab 04/19/17 [Rx] OxyCODONE/APAP 5/325 [Percocet 5/325 MG] 1 each PO Q6H PRN #10 tab 04/19/17 [Rx]
== END 2017-04-19 13:53 | disposition home or self-care (01) | DRG 339 ==
LOC: 3ANU 04:11 → EMEROO 04:11 → 3ANU 07:08
PROVIDERS: ADMIT Surgery; ATTEND Surgery
PROC: GENAPPY (ICD-10-PCS; 2017-04-14 07:00)

== ENCOUNTER 2017-04-22 11:19 | Inpatient (IN) ==
[2017-04-22] MEDS ORDERED: Aspirin 81 MG TAB.CHEW PO ONE (11:29)
[2017-04-22] MEDS ORDERED: Ondansetron 4 MG/2 ML VIAL IVP ONE (11:29)
[2017-04-22] MEDS ORDERED: *HR* Heparin 5,000 UNIT/ML VIAL IVP PRN ×2 (11:29)
[2017-04-22] MEDS ORDERED: *HR* Ticagrelor 90 MG TABLET PO ONE (11:29)
[2017-04-22] MEDS ORDERED: *HR* Morphine 2 MG/ML SYRINGE IVP PRN (11:29)
[2017-04-22] MEDS ORDERED: *HR* Heparin 5,000 UNIT/ML VIAL IVP ONE (11:29)
[2017-04-22] MEDS ORDERED: Heparin 25,000 UNIT/500 ML D5W 25,000 UNIT/500 ML MLS IVC SCH (11:30)
--- NOTE | 2017-04-22 11:39 | Emergency Department Note ---
Disposition Clinical Impression: ST elevation myocardial infarction (STEMI) Qualifiers: Involved coronary artery: other inferior wall coronary artery Qualified Code(s) : I21.19 - ST elevation (STEMI) myocardial infarction involving other coronary artery of inferior wall Disposition: Admitted As Inpatient Condition: Critical Time of Disposition: 11:40 Chest Pain HPI - General Chief Complaint: ED Chest Pain Stated Complaint: C/P & back pain Time Seen by Provider: 04/22/17 11:28 Source: patient, family Limitations: no limitations Vital Signs Reviewed: Yes Nursing Notes Reviewed: Yes - History of Present Illness HPI Narrative: Patient to ED with chest pain. Patient had chest pain that started this morning while shaving. Central pressure radiating to his back. No history of heart problems. No hypertension or diabetes. The patient is 8 days postop open perforated appendix. 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 Duration: constant Onset: during rest Pain Location: substernal Severity: moderate Severity scale (1-10): 8 - Related Data Home Medications Medication Instructions Recorded Confirmed Calcium Carbonate [Tums] 1,000 mg PO Q4HR PRN 04/14/17 04/22/17 Previous Rx's Medication Instructions Recorded Acetaminophen [Tylenol] 650 mg PO Q6HR PRN tab 04/19/17 Ciprofloxacin [Cipro] 500 mg PO BID #10 tab 04/19/17 OxyCODONE/APAP 5/325 [Percocet 1 each PO Q6H PRN #10 tab 04/19/17 5/325 MG] Allergies Allergy/AdvReac Type Severity Reaction Status Date / Time No Known Allergies Allergy Verified 04/14/17 04:14 All systems ED: reviewed and negative except as stated. Constitutional: Denies: fever Cardiovascular: Reports: chest pain Gastrointestinal: Denies: abdominal pain Musculoskeletal: Reports: back pain Chest Pain PMH - Past Medical History Medical history: Reports: no medical history Surgical history: Reports: appendectomy Psychiatric history: Reports: no psych history - Social History Smoking Status: Never smoker Alcohol use: Reports: occasionally Drug use: Reports: none Physical Exam Patient awake and alert. Leaning forward in the wheelchair. Diaphoretic. Clutching his chest. Incision right lower quadrant without erythema. There is a small amount of serosanguineous drainage on the bandage. A few of the isrrael have been removed. - General Limitations: no limitations General appearance: alert, in distress - Head Head exam: atraumatic, normocephalic - Eye Eye exam: Present: normal appearance - ENT ENT exam: normal exam - Neck Neck exam: Present: normal inspection - Chest Chest inspection: Present: normal inspection - Respiratory Respiratory exam: Present: normal lung sounds bilaterally. Absent: respiratory distress - Cardiovascular Cardiovascular exam: Present: regular rate, normal rhythm, normal heart sounds - Abdominal Exam Abdominal exam: Present: soft, tenderness (Right lower quadrant around incision consistent with postoperative pain) - Neurological Exam Neurological exam: Present: alert, oriented X3 - Psychiatric Psychiatric exam: Present: normal affect - Skin Skin exam: Present: warm, dry, other ([place] intact in the right lower quadrant. If you have been removed. No erythema. Small amount of serosanguineous drainage) Course - Reevaluation(s) Reevaluation #1: STEMI alert called immediately upon review of the EKG at 1129. EKG sent to catheter lab. Dr. cano aware that patient is having cardiac complaint not a postoperative complication. He agrees there is no contraindication to anticoagulation. Awaiting Senior Qualitative Researcher team. Time: 11:30 Vital Signs Temperature 97.7 F 04/22/17 11:20 Pulse Rate 82 04/22/17 11:20 Respiratory Rate 20 04/22/17 11:20 Blood Pressure 183/98 04/22/17 11:20 O2 Sat by Pulse Oximetry 100 04/22/17 11:20 Temperature 97.7 F 04/22/17 11:20 Pulse Rate 83 04/22/17 11:51 Respiratory Rate 20 04/22/17 11:57 Blood Pressure 0/0 04/22/17 11:57 O2 Sat by Pulse Oximetry 98 04/22/17 11:51 Oxygen Delivery Oxygen Delivery Nasal Cannula Chest Pain - Lab Data Result diagrams: 04/22/17 11:32 04/22/17 11:32 Lab Results 04/22/17 04/22/17 04/22/17 Range/Units 11:32 11:32 11:32 WBC 9.5 (4.3-11.1) K/mcL RBC 4.82 (4.19-5.50) M/mcL Hgb 13.5 D (12.9-16.9) g/dL Hct 41.5 (37.5-50.1) % MCV 86.1 (83.0-100.0) fL MCH 28.0 (28.0-33.3) pg MCHC 32.5 (31.6-35.5) g/dL RDW 12.9 (11.5-14.5) % Plt Count 404 H D (140-400) K/mcL MPV 8.9 L (9.4-12.4) fL Immature Gran % 1.3 (0-4) % Seg Neutrophils % 80.5 % Lymphocytes % 13.5 % Monocytes % 4.0 % Eosinophils % 0.4 % Basophils % 0.3 % Neutrophils # 7.6 (1.6-8.9) K/mcL Lymphocytes # 1.3 (0.6-4.6) K/mcL Monocytes # 0.4 (0.0-1.3) K/mcL Eosinophils # 0.0 (0.0-0.6) K/mcL Basophils # 0.0 (0.0-0.2) K/mcL PT 13.5 H (9.4-12.1) Seconds INR 1.2 APTT 31.0 (26.0-36.0) Seconds Sodium 135 L (136-145) mEq/L Potassium 4.0 (3.5-4.5) mEq/L Chloride 99 (98-109) mEq/L Carbon Dioxide 25 (19-29) mEq/L BUN 13 (8-26) mg/dL Creatinine 1.09 (0.72-1.25) mg/dL Est GFR ( Amer) > 60 (> 60) Est GFR (Non-Af Amer) > 60 (> 60) BUN/Creatinine Ratio 12 (6-26) Glucose 163 H (70-99) mg/dL Calculated Osmolality 284 (280-300) Calcium 10.8 (8.6-10.8) mg/dL Magnesium 1.8 (1.6-2.6) mg/dL - EKG Data EKG results narrative: EKG at 1129. Sinus rhythm at 83. ST elevation in leads II, III, and F and aVF consistent with an inferior ST elevation [place]. Normal axis. Normal intervals. QT 322 with a QTC of 361 Critical Care Time Critical Care Time: Yes Total Critical Care Time: 30 Attestation: Critical care performed: Time is exclusive of separately billable procedures. Time includes: direct patient care, patient reassessment, coordination of patient care, interpretation of data (laboratory data, radiology data, and respiratory data), review of patient's medical records, medical consultation and documentation of patient care. Procedures included in critical care time: Procedures excluded from critical care time:
[2017-04-22 11:42] LABS: Basophils % 0.3 %; Eosinophils % 0.4 %; Hematocrit 41.5 % (37.5-50.1); Immature Granulocytes % 1.3 % (0-4); Lymphocytes # 1.3 K/mcL (0.6-4.6); Lymphocytes % 13.5 %; Mean Corpuscular HGB Conc 32.5 g/dL (31.6-35.5); Mean Corpuscular Volume 86.1 fL (83.0-100.0); Mean Platelet Volume 8.9 fL (9.4-12.4); Monocytes # 0.4 K/mcL (0.0-1.3); Neutrophils # 7.6 K/mcL (1.6-8.9); Platelet Count 404 K/mcL (140-400); Red Blood Count 4.82 M/mcL (4.19-5.50); Red Cell Distribution Width 12.9 % (11.5-14.5); Segmented Neutrophils % 80.5 %
[2017-04-22] MEDS ORDERED: 0.9 % Sodium Chloride 1,000 ML ONE ×2 (11:44→11:45)
[2017-04-22] MEDS ORDERED: Heparin 1,000 UNITS/500 mL NS 500 ML ONE (11:44)
[2017-04-22] MEDS ORDERED: Verapamil 5 MG/2 ML VIAL ONE (11:45)
[2017-04-22] MEDS ORDERED: *HR* Heparin 10,000 UNIT/10 ML VIAL ONE (11:45)
[2017-04-22] MEDS ORDERED: Nitroglycerin 1,000 MCG/10 ML VIAL IV ONE (11:45)
[2017-04-22 11:46] LABS: INR 1.2; Prothrombin Time 13.5 Seconds (9.4-12.1)
[2017-04-22] MEDS ORDERED: *HR* Midazolam HCl 2 MG/2 ML VIAL ONE (11:46)
[2017-04-22] MEDS ORDERED: *HR* FentaNYL (PF) 100 MCG/2 ML VIAL ONE (11:46)
[2017-04-22 11:48] LABS: Hemoglobin 13.5 g/dL (12.9-16.9)
--- NOTE | 2017-04-22 11:51 | Pre-Sedation Evaluation ---
Pre-sedation evaluation - Pre-sedation checklist Date of procedure: 04/22/17 Procedure: [facility] Recent Vitals: Last Vital Signs Temp 97.7 F 04/22/17 11:20 Pulse 81 04/22/17 11:47 Resp 20 04/22/17 11:47 BP 163/99 04/22/17 11:47 Pulse Ox 98 04/22/17 11:48 H&P (including ROS) documented in medical record: Yes Previous reaction to sedatives/anesthetics: No Dietary Status: NPO after Midnight Airway Assessment: Patient can open mouth completely, TMJ function normal ASA Classification *see protocol: CLASS II-Mild systemic disease Plan of Care: Pt appropriate candidate for procedure/moderate/conscious sedation , Risks/benefits of procedure/sedation discussed w/ patient/family
--- NOTE | 2017-04-22 11:52 | Cardiology History & Physical ---
Date of Encounter: 04/22/17 Time of Encounter: 12:00 Assessment and Plan (1) ST elevation myocardial infarction (STEMI) Current Visit: Yes Status: Acute A/R/B of [facility] discussed with him. He wishes to proceed for life saving measures. Aspirin, brilinta, heparin given in ED. EF assessment will be completed. Cardiac rehab consult. The assessment and plan as outlined above was discussed with the patient and/or family members who expressed understanding and agreement. All questions were answered. Qualifiers: Involved coronary artery: other inferior wall coronary artery Qualified Code(s): I21.19 - ST elevation (STEMI) myocardial infarction involving other coronary artery of inferior wall History of Present Illness Chief complaint: chest pain - stemi HPI: Mr. Muse is a 56 year old male with no previous cardiac history presents with sudden onset back/chest pain that was severe and sharp while he was shaving. He proceeded to ED where EKG shows inferior STEMI. Discomfort was minimally relieved with aspirin/ntg. He had associated diaphoresis and dyspnea. Incidentally, he is POD 8 from open appendectomy for acute appendicitis. Past Med Surg Social Fam HX - Past Medical History Medical history: no medical history Psychiatric history: no psych history - Past Surgical History Surgical History: no surgical history - Social History Smoking Status: Never smoker Smokeless Tobacco Status: No Alcohol use: occasionally Drug use: none - Family History Father Family Member Ethnicity: Non- Living Status: Medications and Allergies Calcium Carbonate [Tums] 1,000 mg PO Q4HR PRN 04/14/17 [History] Acetaminophen [Tylenol] 650 mg PO Q6HR PRN tab 04/19/17 [Rx] Ciprofloxacin [Cipro] 500 mg PO BID #10 tab 04/19/17 [Rx] OxyCODONE/APAP 5/325 [Percocet 5/325 MG] 1 each PO Q6H PRN #10 tab 04/19/17 [Rx] Allergies No Known Allergies Allergy (Verified 04/14/17 04:14) All Systems Review: A 10-system review of systems was performed and is negative for pertinent findings except as documented above in the HPI. - Constitutional Constitutional: no chills, no fever(s) - EENT Eyes: no blurred vision, no loss of vision Nose, mouth and throat: no epistaxis, no odynophagia - Cardiovascular Cardiovascular: chest pain at rest, chest pain with exertion, diaphoresis - Respiratory Respiratory: no hemoptysis, no wheezing - Gastrointestinal Gastrointestinal: no hematemesis, no hematochezia - Genitourinary Genitourinary: no dysuria, no hematuria - Musculoskeletal Musculoskeletal: no arthralgias, no myalgias - Integumentary Integumentary: no erythema, no rash - Neurological Neurological: no loss of vision, no memory loss - Psychiatric Psychiatric: no anxiety, no depression - Hematological/Lymphatic Hematologic/Lymphatic: no easy bleeding, no easy bruising Physical Examination Vital Signs, Last 4 Hours Temp Pulse Resp BP Pulse Ox 04/22/17 11:48 98 04/22/17 11:47 81 20 163/99 97 04/22/17 11:20 97.7 F 82 20 183/98 100 General: Conversant, Other (diaphoretic and distressed) HEENT: Atraumatic Neck: No JVD Cardiac: Reg Rate and Rhythm Lungs: Normal Breath Sounds Neuro: Alert and responsive Abdomen: Soft Skin: No rashes noted on visualized skin Musculoskeletal: No Chest Wall Tenderness Extremities: No Edema Results 04/22/17 11:32 04/22/17 11:32 Lab Results 04/22/17 11:32 INR 1.2 APTT 31.0 - EKG Interpretation EKG results cardiology: personally reviewed, sinus rhythm (inferior current of injury)
[2017-04-22] MEDS ORDERED: Ondansetron 4 MG/2 ML VIAL IVP PRN (11:53)
[2017-04-22] MEDS ORDERED: Nitroglycerin 0.4 MG TAB.SUBL SL PRN (11:53)
[2017-04-22 11:55] LABS: BUN/Creatinine Ratio 12 (6-26); Blood Urea Nitrogen 13 mg/dL (8-26); Carbon Dioxide 25 mEq/L (19-29); Chloride 99 mEq/L (98-109); Glucose 163 mg/dL (70-99); Sodium 135 mEq/L (136-145); eGFR For African Americans > 60 (> 60); eGFR For Non-African Americans > 60 (> 60)
[2017-04-22 11:56] LABS: Calcium 10.8 mg/dL (8.6-10.8); Magnesium 1.8 mg/dL (1.6-2.6); Osmolality,Calculated 284 (280-300)
[2017-04-22] MEDS ORDERED: Ondansetron 4 MG/2 ML VIAL ONE (12:13)
[2017-04-22] MEDS ORDERED: Tirofiban 12.5 MG/250ML 12.5 MG/250 ML BAG ONE (12:22)
[2017-04-22] MEDS ORDERED: Tirofiban 12.5 MG/250ML 12.5 MG/250 ML BAG IVC SCH (12:45)
--- NOTE | 2017-04-22 12:52 | Invasive Diagnostic Lab Proc ---
Name: Shmuel Muse Date of Study: 04/22/2017 Date: 1960 Ht: 68.9in Medical Record#: [id number] Age: 56 Wt: 194.01lb Gender: Male BSA: 2.04 Order #: [id number] BMI: 28.73 Physicians Procedure Physician: Crow Wheatley MD, [facility] Referring MD: Referring MD: Staff Name Position Time In Ethan Navarro RT (R) Scrub 11:55 AM Anny Francisco RN [employer] Certified Internetwork Expert 11:55 AM Mario Ochoa RN [employer] Certified Internetwork Expert 11:55 AM Julissa Allen RN Monitor 11:55 AM Camila Odonnell RN Monitor 11:55 AM Geneva Rader RT (R) Monitor 11:55 PM Indications Indication STEMI Procedures Performed Procedure PRQ CARD REVASC DC 1 VSL L HRT ARTERY/VENTRICLE ANGIO Pre-Procedure Checklist Informed consent is complete signed and on chart. H&P is on chart. ID band is on and ID verified with patient. Patient NPO for procedure The procedure was described for the patient and questions were answered. Blood Pressure: 109/74 ECG is on chart. Rhythm: NSR wioth st elevation Plan of Care Patient will tolerate the procedure without complications. Adequate level of comfort will be maintained. Hemodynamics will remain stable Patient will recover from procedure without complications. Respiratory function will be maintained. Cardiac rhythm will remain stable. Patient temperature will be maintained. Patient and/or family have verbalized understanding of the procedure. Patient Education Intravenous Access Time IV Size Location DC'd Fluid/Drip Rate Units RN 11:46 AM 18g 1 1/4" Patent On Arrival Lt Antecubital 0.9NaCl 25 ml/hr Mario Ochoa RN 11:46 AM 18g 1 1/4" Patent On Arrival Rt Antecubital Allergies No Known Allergies Vital Signs Time BP (mmHg) HR (bpm) O2 Sat. RR (bpm) LOC 11:46 AM 183 / 98 82 100 % 5 = Fully awake and oriented or at pre-proc level 11:57 AM / % 5 = Fully awake and oriented or at pre-proc level 12:28 PM 180 / 87 71 97 % 24 12:33 PM 185 / 89 75 99 % 20 11:58 AM 109 / 74 87 99 % 12:04 PM 169 / 98 94 89 % 22 12:08 PM 175 / 96 93 95 % 20 12:13 PM 167 / 86 82 97 % 26 12:18 PM 175 / 93 83 96 % 25 12:23 PM 181 / 93 71 96 % 22 Procedural Medications Time Medication Dose Units Method Given By 11:56 AM Oxygen 2 L/min nasal cannula Mario Ochoa RN 12:00 PM Versed 2 mg Intravenous Mario Ochoa RN 12:01 PM Fentanyl 50 mcg Intravenous Mario Ochoa RN 12:02 PM Lidocaine 2% 1 ml Subcutaneous Crow Wheatley MD, FACC 12:02 PM Nitroglycerin 200 mcg Verapamil 2.5 mg Intraarterial Crow Wheatley MD, FACC 12:04 PM Oxygen 4 L/min nasal cannula Mario Ochoa RN 12:05 PM Oxygen 5 L/min nasal cannula Anny Francisco RN 12:13 PM Zofran 4 mg Intravenous Mario Ochoa RN 12:24 PM Aggrastat Bolus: 46 ml Intravenous Mario Ochoa RN 12:25 PM Aggrastat 12.5mg/250ml 16.5 ml Intravenous Mario Ochoa RN ASA Classification: CLASS II- Mild systemic disease (i.e. well-controlled diabetes, hypertension, asthma, cigarette smoking) Emergent Procedure: ASA score is assumed Mare Score Preprocedure Postprocedure Activity 2- Moves 4 extremities sustained head lift Activity Circulation 2- SBP +/= 20 points of pre-anesthetic level Circulation Consciousness 2- Awake and alert oriented x 3 Consciousness O2 Saturation 2- Able to maintain O2 satruation of 92% on room air O2 Saturation Respiratory 2- Able to deep breathe and cough well Respiratory Total Score 10 Total Score Contrast Agent: Isovue Diagnostic Contrast: 127 ml Total Contrast: 127 ml Fluoro Dose: 600 mGy Procedure Log Time Note Enter By 11:47 AM CathStat 11:55 AM Geneva Rader RT (R) Position: Monitor Time in: 11:55 tsites 11:55 AM 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 Mario Ochoa RN Position: [employer] Certified Internetwork Expert Time in: 11:55 [facility] 11:55 AM Alejandro, Julissa RN Position: Circilator Time in: 11:55 [facility] 11:56 AM Camila Odonnell RN Position: [employer] Certified Internetwork Expert Time in: 11:55 [facility] 11:56 AM Patient charges- Angio tray pack, Navilyst 3mm J, Pulse Oximetry and ACIST tubing and transducer [facility] 11:56 AM Case Delayed No [facility] 11:56 AM Time: 11:56 Oxygen on at 2 L/min per nasal cannula by Mario Ochoa RN [facility] 11:56 AM Hair removed from procedure site in emergency department using clippers. Right wrist and bilateral groin prepped with Chloraprep by Anny Francisco RN , safety strap applied then patient was draped. Skin intact. [facility] :56 AM Time: 11:56 Patient comfortable and pain free: Yes [facility] 11:57 AM Time: 11:57LOC: 5 = Fully awake and oriented or at pre-proc level [facility] 11:57 AM Clinical Presentation: STEMI or equivalent [facility] 11:58 AM Vitals capture started with the following parameters, Patient=Adult, Interval=5 min, Initial Ydbribkp=881 mmHg, Deflation Rate=5 mmHg, Cuff placed on Right Arm 11:58 AM HR=87 bpm, BVTS=259/74 mmhg, SpO2=99.0 % 11:58 AM Recorded ECG: HR=83 Condition=Condition 1 11:59 AM Physician arrived 11:59 [facility] 11:59 AM Procedure start 11:59 [facility] 12:00 PM Time out performed according to hospital policy [facility] 12:00 PM Time: 12:00 Versed 2 mg Intravenous Given by Mario [facility]a RN [facility] 12[facility] PM Time: 12:01 Fentanyl 50 mcg Intravenous Given by Mario [facility]choa RN [facility] 12:01 PM Pressure channel 1 zero failed. 12:01 PM Pressure channel 1 zero failed. 12:01 PM Pressure channel 1 zeroed. 12:02 PM Time: 12:02 1 ml Lidocaine 2% to right groin Subcutaneous Given by Crow Wheatley MD, [facility] 12:02 PM Access obtained by percutaneous puncture. 6Fr 10cm Terumo Glidesheath sheath placed in right Radial artery. [id number] [facility] 12:02 PM Time: 12:02 Patient given 200 mcg Nitroglycerin, and 2.5 mg Verapamil Intraarterial by Crow Wheatley MD, [facility] 12:02 PM 5Fr TIG catheter inserted over the wire [facility] 12:02 PM 0.035 260cm Navilyst 3mmJ wire [id number] [facility] 12:03 PM Wire removed [facility] 12:03 PM 0.035 145cm VSI Sridhar-Torque wire [id number] [facility] 12:04 PM Wire removed [facility] 12:04 PM HR=94 bpm, MIXB=639/98 mmhg, SpO2=89 %, Resp=22 B/min 12:04 PM Time: 12:04 Oxygen on at 4 L/min per nasal cannula by Mario Ochoa RN [facility] 12:04 PM Recorded Pressure: Ao, HR=87, Condition=Condition 1 (Aorta) Ao 132/99/115 12:04 PM RCA angiography performed in multiple views. tsites 12:04 PM Lesion found in Mid RCA. Pre Stenosis: 100 Pre VINEET Flow: 0: No Flow/No perfusion tsites 12:05 PM Right Coronary, Right Posterior Descending Arteries with Right Posterolateral and Acute Marginal branches with 100 % stenosis. If graft is supplying this area, 0 % stenosis tsites 12:05 PM LCA angiography performed in multiple views. tsites 12:05 PM Recorded Pressure: Ao, HR=95, Condition=Condition 1 (Aorta) Ao 165/37/99 12:05 PM Time: 12:05 Oxygen on at 5 L/min per nasal cannula [facility]ny Francisco [facility] 12:05 PM Catheter removed tsites 12:06 PM PCI Status Emergency tsites 12:06 PM PCI Indication: Immediate PCI for STEMI tsites 12:06 PM PCI lesion in Mid RCA. tsites 12:07 PM 6Fr IM Runway guide catheter was used to cannulate the PCI vessel successfully. reused? No tsites 12:07 PM .014 [place] 190cm guide wire across target lesion- successful. reused? No tsites 12:07 PM Recorded Pressure: Ao, HR=94, Condition=Condition 1 (Aorta) Ao 140/79/106 12:08 PM 2.5 mm x 15 mm Emerge Monorail balloon across target lesion- successful. reused? No tsites 12:08 PM HR=93 bpm, AUNS=146/96 mmhg, SpO2=95 %, Resp=20 B/min 12:09 PM Balloon inflated @ 10 yoan for 9 seconds tsites 12:10 PM Balloon inflated @ 6 yoan for 10 seconds tsites 12:12 PM Balloon catheter removed intact. tsites 12:13 PM 3.0mm x 38mm Synergy drug-eluting stent across target lesion- successful Lot #[id number] tsites 12:13 PM Time: 12:13 Zofran 4 mg Intravenous Given by Mario Ochoa RN tsites 12:13 PM Stent deployed @ 14 yoan for 18 seconds tsites 12:13 PM HR=82 bpm, LMVT=085/86 mmhg, SpO2=97.0 %, Resp=26 B/min 12:15 PM Recorded Pressure: Ao, HR=91, Condition=Condition 1 (Aorta) Ao 117/66/90 12:16 PM Stent delivery system removed intact. tsites 12:17 PM 3.5mm x 12mm Synergy drug-eluting stent across target lesion- successful Lot #[id number] tsites 12:18 PM Stent deployed @ 16 yoan for 20 seconds tsites 12:18 PM Recorded Pressure: Ao, HR=70, Condition=Condition 1 (Aorta) Ao 148/82/111 12:18 PM HR=83 bpm, UGZS=273/93 mmhg, SpO2=96.0 %, Resp=25 B/min 12:19 PM Stent delivery system removed intact. tsites 12:19 PM 4.0 mm x 6mm NC Emerge balloon across target lesion- successful. reused? No tsites 12:20 PM Balloon inflated @ 17 yoan for 25 seconds tsites 12:22 PM Balloon catheter removed intact. tsites 12:22 PM 3.5 mm x 15mm NC Trek Rx balloon across target lesion- successful. reused? No tsites 12:23 PM Balloon inflated @ 17 yoan for 18 seconds tsites 12:23 PM HR=71 bpm, DNDI=358/93 mmhg, SpO2=96.0 %, Resp=22 B/min 12:24 PM Balloon inflated @ 16 yoan for 18 seconds tsites 12:24 PM Balloon inflated @ 16 yoan for 20 seconds tsites 12:25 PM Time: 12:24 Aggrastat Bolus: 46 ml Intravenous Given by Mario Ochoa RN Turpin pump tsites 12:25 PM Time: 12:25 Aggrastat 12.5mg/250ml 16.5 ml Intravenous Given by Mario Ochoa RN Turpin pump tsites 12:25 PM Balloon catheter removed intact. tsites 12: PM Guide wire removed intact. tsites 12: PM Catheter removed tsites 12:27 PM 5Fr FL3.5 catheter inserted over the wire [id number] tsites 12:28 PM LCA angiography performed in multiple views. tsites 12:28 PM Lesion found in Proximal LAD. Pre Stenosis: 30 Pre VINEET Flow: tsites 12:28 PM HR=71 bpm, VEEE=670/87 mmhg, SpO2=97 %, Resp=24 B/min 12:29 PM Lesion found in 1st Marginal. Pre Stenosis: 20 Pre VINEET Flow: tsites 12:29 PM Catheter removed tsites 12:29 PM 5Fr Pigtail catheter inserted over the wire DNC tsites 12:29 PM Catheter selectively placed in left ventricle tsites 12:29 PM Pressure channel 1 zeroed. 12:29 PM Recorded Pressure: LV, HR=72, Condition=Condition 1 (Left Ventricle) LV 145/0/14 12:30 PM Recorded Pressure: LV, Ao, HR=77, Condition=Condition 1 (Left Ventricle) LV 164/4/14, (Aorta) Ao 157/79/111 12:30 PM Bolus angiogram of left Ventricle complete: 11 ml/sec for a total of 30 mls tsites 12:30 PM Catheter removed tsites 12:30 PM Coronary Dominance: right tsites 12:30 PM Proximal Left Anterior Descending Coronary Artery with 30% stenosis. If graft is supplying this territory, 0 % stenosis. tsites 12:31 PM Circumflex, Obtuse Marginal, Left Posterior Descending, and Left Posterolateral Coronary Arteries with 20 % stenosis. If graft is supplying this area, 0 % stenosis tsites 12:31 PM Procedure completed at 12:31 tsites 12:32 PM Sign out completed: Radiation Dose 600 mGy Fluoro Time: 6.8 Isovue 370 - 500ml contrast 127 ml given by Crow Wheatley MD, [facility]. Complications: NoneCardiac Rehab Consult needed: YesConfirmed administered medications: Yes tsites 12:32 PM Isovue 370 - 500ml,1 Bottle(s) used. tsites 12:32 PM Arterial sheath pulled, Vasc Band closure device used and was Successful S/N. tsites 12:32 PM 11 ml air in Vasc Band. tsites 12:32 PM Post ECG NSR tsites 12:33 PM Post Blood Pressure 180/87 tsites 12:33 PM 12:33 Post Pulses Bilateral DP & PT 1+ tsites 12:33 PM Information taught PCI, Cardiac Cath, and Vasc Band tsites 12:33 PM Education needs Procedure, Plan of Care, and Responsibilities of Patient in Care tsites 12:33 PM Learning barriers :None tsites 12:33 PM Education Methods Verbal tsites 12:33 PM Education evaluation Able to repeat information tsites 12:33 PM Site status No bleeding/hematoma - Rt Wrist as reported by Ethan Navarro RT (R) at 12:33 tsites 12:33 PM HR=75 bpm, TONR=357/89 mmhg, SpO2=99.0 %, Resp=20 B/min 12:36 PM Opsite applied tsites 12:36 PM Plavix, Effient or Brilinta given Yes in ER tsites 12:36 PM Delay to floor No tsites 12:36 PM Patient out of room: 12:36 tsites 12:36 PM Family placed in consult room. tsites 12:38 PM Report given to babs CAMEORN Pt taken to ICU Room #2. 12:36 tsites Complications Complication None Hemodynamics Pressures Site Systolic/A Wave Diastolic/V Wave Mean AO 132 99 115 AO 165 37 99 AO 140 79 106 AO 117 66 90 AO 148 82 111 LV 145 0 14 LV 164 4 14 AO 157 79 111 Post Procedure Information Blood Pressure: 180/87 mmHg Rhythm: NSR Post procedural instructions were given Closure Device Time Device Success/Fail 04/22/2017 12:26:00 PM Mechanical Compression Site Checks Time Location Status Staff Sheath In? Note 12:33 PM Rt Wrist No bleeding/hematoma Ethan Navarro RT (R) Pulses Time Site Pre-Procedure Post-Procedure Note Bilateral DP & PT 1+ 12:33:00 PM Bilateral DP & PT 1+ Updated by Geneva Rader RT (R) on 04/22/2017 12:43:18 PM Geneva Rader RT electronically signed on 04/22/2017 12:44:32 PM with status of Final
--- NOTE | 2017-04-22 12:57 | Event Note ---
Date of Encounter: 04/22/17 Time of Encounter: 13:00 - Cardiology Event Note Emergent LHC - 100% mid RCA sp DENITA x 2 overlapping. EF normal with mild focal inferior wall motion abnormality. Mild disease in the left system. History of recent appendicitis with need for acute open appendectomy; there is no direct causal factor between that and his VT today.
[2017-04-22] MEDS: *HR* Ticagrelor 90 MG TABLET PO SCH (20:23)
[2017-04-23 04:46] LABS: Basophils % 0.4 %; Eosinophils # 0.1 K/mcL (0.0-0.6); Eosinophils % 0.7 %; Hematocrit 34.6 % (37.5-50.1); Immature Granulocytes % 0.9 % (0-4); Lymphocytes # 1.1 K/mcL (0.6-4.6); Lymphocytes % 10.9 %; Mean Corpuscular HGB Conc 33.2 g/dL (31.6-35.5); Mean Corpuscular Hemoglobin 28.5 pg (28.0-33.3); Mean Corpuscular Volume 85.9 fL (83.0-100.0); Mean Platelet Volume 9.3 fL (9.4-12.4); Monocytes # 0.7 K/mcL (0.0-1.3); Monocytes % 6.7 %; Neutrophils # 7.8 K/mcL (1.6-8.9); Platelet Count 346 K/mcL (140-400); Red Blood Count 4.03 M/mcL (4.19-5.50); Segmented Neutrophils % 80.4 %
[2017-04-23 04:47] LABS: Hemoglobin 11.5 g/dL (12.9-16.9)
[2017-04-23 05:03] LABS: Hemoglobin A1C 5.5 %
[2017-04-23 05:04] LABS: BUN/Creatinine Ratio 18 (6-26); Blood Urea Nitrogen 15 mg/dL (8-26); Calcium 9.5 mg/dL (8.6-10.8); Carbon Dioxide 24 mEq/L (19-29); Chloride 101 mEq/L (98-109); Glucose 127 mg/dL (70-99); Osmolality,Calculated 280 (280-300); Potassium 4.4 mEq/L (3.5-4.5); Sodium 134 mEq/L (136-145); eGFR For African Americans > 60 (> 60); eGFR For Non-African Americans > 60 (> 60)
--- NOTE | 2017-04-23 07:49 | Electrocardiograph Report ---
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
[2017-04-23] MEDS ORDERED: *HR* Heparin 5,000 UNIT/ML VIAL SQ SCH (08:00)
[2017-04-23] MEDS: *HR* Ticagrelor 90 MG TABLET PO SCH ×2 (08:49→20:33)
[2017-04-23] MEDS ORDERED: Aspirin 81 MG TAB.CHEW PO SCH (09:00)
[2017-04-23] MEDS ORDERED: Metoprolol XL (24 HR) Succ 25 MG TAB.ER.24H PO SCH (10:00)
--- NOTE | 2017-04-23 10:04 | Cardiology Progress Note ---
Date of Encounter: 04/23/17 Time of Encounter: 10:00 Assessment and Plan (1) ST elevation myocardial infarction (STEMI) Current Visit: Yes Status: Acute S/P LHC yesterday, 100% mRCA with DENITA x 2 placed. DAPT (ASA and Brilinta) uninterrupted x 1 year. Pt verbalizes understanding. BB and Statin started. Echo shows EF 55%, wall motion not well visualized. Mild LVDD. Pt denies chest pain or dyspnea. Right radial access site healing well. No bleeding, hematoma or ecchymosis noted. Labs and vitals stable. Troponin negative x 1. Transfer out of ICU today with plans to discharge home tomorrow. No events on tele. Qualifiers: Involved coronary artery: other inferior wall coronary artery Qualified Code(s): I21.19 - ST elevation (STEMI) myocardial infarction involving other coronary artery of inferior wall (2) S/P appendectomy Current Visit: Yes Status: Acute S/P appendectomy last week. Mild pain at site. Isrrael noted, some have fallen out with drainage. On PO Cipro. Follow-up with Dr. Cruz. Discussion w patient/family: The assessment and plan as outlined above was discussed with the patient and/or family members who expressed understanding and agreement. All questions were answered. Thank you for involving us in the care of your patient. Please call with any questions. I will discuss all the above with Dr. Nagel and make changes as needed. Subjective Principal diagnosis: STEMI Interval history: S/P STEMI and emergent LHC yesterday with 100% mRCA stenosis, now s/p DENITA x 2. Echo shows EF 55%, wall motion not well visualized. Pt denies any chest pain or dyspnea. Reports mild abdominal pain at appendectomy site. Objective Vital Signs, Last 4 Hours Temp Pulse Resp BP Pulse Ox 04/23/17 09:00 81 20 155/85 96 04/23/17 08:00 79 16 126/77 96 04/23/17 07:38 96.7 F L 04/23/17 07:19 84 04/23/17 06:48 80 14 123/77 95 Vital Signs Temp Pulse Resp BP Pulse Ox 04/23/17 09:00 81 20 155/85 96 04/23/17 08:00 79 16 126/77 96 04/23/17 07:38 96.7 F L 04/23/17 07:19 84 04/23/17 06:48 80 14 123/77 95 04/23/17 05:55 79 18 120/67 96 04/23/17 05:00 76 14 101/67 95 04/23/17 03:47 83 14 132/80 04/23/17 03:22 98.5 F 04/23/17 03:21 75 04/23/17 02:54 79 14 133/82 95 04/23/17 01:59 79 18 145/81 96 04/23/17 00:52 82 12 137/84 97 04/23/17 00:00 98.1 F 04/22/17 23:52 83 14 118/61 97 04/22/17 23:15 86 04/22/17 23:13 86 12 149/84 96 04/22/17 22:00 75 10 153/81 95 04/22/17 20:54 75 18 150/88 98 04/22/17 20:00 20 154/82 98 04/22/17 19:20 98.7 F 04/22/17 19:19 80 04/22/17 19:12 24 147/84 97 04/22/17 18:00 80 20 154/80 97 04/22/17 17:00 81 18 143/95 97 04/22/17 16:30 87 04/22/17 16:10 97.5 F L 04/22/17 16:00 86 16 161/94 96 04/22/17 15:00 83 14 146/90 98 04/22/17 14:00 81 18 140/88 96 04/22/17 13:35 90 14 148/91 96 04/22/17 13:20 94 16 169/95 96 04/22/17 13:10 96 04/22/17 13:05 87 16 159/93 96 04/22/17 12:50 98.1 F 84 16 157/103 95 04/22/17 11:57 20 0/0 04/22/17 11:51 83 20 168/96 98 04/22/17 11:48 98 04/22/17 11:47 81 20 163/99 97 04/22/17 11:20 97.7 F 82 20 183/98 100 Intake and Output 04/22/17 04/23/17 04/23/17 23:59 07:59 15:59 Intake Total 240 / 240 240 / 240 Output Total 700 / 700 0 / 0 Balance -460 / -460 240 / 240 Intake: Oral 240 / 240 240 / 240 Output: Urine 700 / 700 0 / 0 Other: Meal Dinner Percent of Meal Consumed 50% Weight 89.7 kg Patient Weight 04/23/17 23:59 Weight 89.7 kg General: Conversant, No Apparent Distress HEENT: Atraumatic, Normocephaly, Mucus Membranes Moist Neck: No JVD, Normal carotid pulses Cardiac: Reg Rate and Rhythm, Normal S1 and S2, No Murmur Lungs: Normal Breath Sounds, No Wheeze, Rales, Rhonchi Neuro: Alert and responsive, No focal deficits noted Abdomen: Soft, Other (tenderness RLQ) Skin: Other (isrrael noted at appendectomy site with drainage. Right radial access site healing well. No bleeding, hematoma or ecchymosis noted.) Musculoskeletal: No Chest Wall Tenderness Extremities: No Clubbing, No Cyanosis, No Edema, Normal Pulses Results 04/23/17 04:29 04/23/17 04:29 Lab Results 04/23/17 04/23/17 04:29 04:29 WBC 9.8 Hgb 11.5 L D Hct 34.6 L Plt Count 346 Sodium 134 L Potassium 4.4 Chloride 101 Carbon Dioxide 24 BUN 15 Creatinine 0.85 Glucose 127 H Calcium 9.5 Short CBC 04/23/17 04/22/17 Range/Units 04:29 11:32 WBC 9.8 9.5 (4.3-11.1) K/mcL Hgb 11.5 L D 13.5 D (12.9-16.9) g/dL Hct 34.6 L 41.5 (37.5-50.1) % Plt Count 346 404 H D (140-400) K/mcL Neutrophils # 7.8 7.6 (1.6-8.9) K/mcL BMP 04/23/17 04/22/17 Range/Units 04:29 11:32 Sodium 134 L 135 L (136-145) mEq/L Potassium 4.4 4.0 (3.5-4.5) mEq/L Chloride 101 99 (98-109) mEq/L Carbon Dioxide 24 25 (19-29) mEq/L BUN 15 13 (8-26) mg/dL Creatinine 0.85 1.09 (0.72-1.25) mg/dL Glucose 127 H 163 H (70-99) mg/dL Calcium 9.5 10.8 (8.6-10.8) mg/dL Cardiac Enzymes 04/22/17 Range/Units 11:32 Troponin I 0.01 (0-0.03) ng/mL Impressions Echocardiogram 04/22/17 11:53 Impressions: LVEF 55%. Overall, normal LV systolic function. Multiple wall segments were not well visualized. Consider use of Definity for future studies. There is evidence of mild diastolic dysfunction of the left ventricle. Normal right ventricular size and function. No significant valvular dysfunction. No pulmonary hypertension. Left Ventricular Wall Motion: Rest Echo Findings The mid inferior, basal inferior, apical anterior, mid anterior, basal anterior, mid inferior lateral and basal inferior lateral hodge were not visualized. All other wall segments showed normal motion. Findings: Study Quality * Technically adequate exam. ECG Findings * Normal sinus rhythm. Left Ventricle * LVEF 55%. * Normal LV chamber size, wall thickness and function. * Mild left ventricular diastolic dysfunction. Aorta * Normally sized aortic root. Aortic Valve * No aortic regurgitation. * Aortic valve not well visualized. * No aortic stenosis. Mitral Valve * No mitral regurgitation. * Normal mitral valve structure. * No mitral stenosis. Tricuspid Valve * Tricuspid valve not well visualized. * Trace tricuspid regurgitation. * Estimated RA pressure is 3 mmHg. * Estimated RVSP is 19 mmHg. * No pulmonary hypertension. Pulmonic Valve * Pulmonic valve is not well visualized. * No pulmonic stenosis. * No pulmonic regurgitation. Pulmonary Artery * Pulmonary artery not well visualized. Right Ventricle * Normal right ventricular structure and function. Left Atrium * Normal left atrial size. Right Atrium * Normal right atrial size. Pericardium * There is no pericardial effusion present. Interatrial Septum * Interatrial septum not well evaluated. IVC * The IVC is not dilated. Active Medications Acetaminophen (Tylenol) 500 mg PO Q6HR PRN PRN Reason: Mild Pain Stop: 10/22/17 11:54 Aspirin (Aspirin) 81 mg PO DAILY [facility] Stop: 10/23/17 09:01 Last Admin: 04/23/17 08:49 Dose: 81 mg Ciprofloxacin HCl (Cipro) 500 mg PO BID [facility] Stop: 10/22/17 21:01 Last Admin: 04/23/17 08:49 Dose: 500 mg Diphenhydramine HCl (Benadryl) 25 mg PO HS PRN PRN Reason: Insomnia Stop: 10/22/17 12:35 Heparin Sodium (Porcine) (Heparin) 5,000 unit SQ Q12HCO [facility] Stop: 10/23/17 08:01 Last Admin: 04/23/17 08:52 Dose: 5,000 unit Metoprolol Succinate (Toprol Xl) 25 mg PO DAILY [facility] Stop: 10/23/17 10:01 Morphine Sulfate (Morphine Sulfate) 4 mg IVP Q5MIN PRN PRN Reason: Chest Pain Last Admin: 04/22/17 11:40 Dose: 4 mg Nitroglycerin (Nitroglycerin) 0.4 mg SL Q5MIN PRN PRN Reason: Chest Pain Stop: 10/22/17 11:54 Ondansetron HCl (Zofran) 4 mg IVP Q8HR PRN PRN Reason: Nausea And Vomiting Stop: 10/22/17 11:54 Rosuvastatin Calcium (Crestor) 40 mg PO HS [facility] Stop: 10/22/17 21:01 Last Admin: 04/22/17 20:23 Dose: 40 mg Ticagrelor (Brilinta) 90 mg PO BID [facility] Stop: 10/22/17 21:01 Last Admin: 04/23/17 08:49 Dose: 90 mg - Imaging and Cardiology Echo: report reviewed Cardiac cath: report reviewed - EKG Interpretation EKG results cardiology: other (12 hr tele AVG HR 80, SR, no significant pauses or arrhythmias.) Consult Discharge Plan - Plan Referrals: NONE,PCP [Primary Care Provider] -
[2017-04-23] MEDS ORDERED: Ondansetron 4 MG/2 ML VIAL IVP PRN (10:18)
[2017-04-23] MEDS ORDERED: Nitroglycerin 0.4 MG TAB.SUBL SL PRN (10:18)
[2017-04-23] MEDS ORDERED: *HR* Morphine 2 MG/ML SYRINGE IVP PRN (10:18)
--- NOTE | 2017-04-23 11:40 | Electrocardiograph Report ---
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
--- NOTE | 2017-04-23 11:41 | Electrocardiograph Report ---
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
[2017-04-23] MEDS: Metoprolol XL (24 HR) Succ 25 MG TAB.ER.24H PO SCH (14:26)
[2017-04-23] MEDS: *HR* Heparin 5,000 UNIT/ML VIAL SQ SCH (18:22)
[2017-04-24 03:28] LABS: Basophils % 0.3 %; Eosinophils # 0.1 K/mcL (0.0-0.6); Eosinophils % 1.1 %; Hematocrit 35.2 % (37.5-50.1); Hemoglobin 11.5 g/dL (12.9-16.9); Lymphocytes # 1.6 K/mcL (0.6-4.6); Lymphocytes % 17.2 %; Mean Corpuscular HGB Conc 32.7 g/dL (31.6-35.5); Mean Corpuscular Volume 85.9 fL (83.0-100.0); Mean Platelet Volume 9.2 fL (9.4-12.4); Monocytes # 0.7 K/mcL (0.0-1.3); Monocytes % 7.3 %; Neutrophils # 6.7 K/mcL (1.6-8.9); Platelet Count 376 K/mcL (140-400); Red Cell Distribution Width 12.9 % (11.5-14.5); Segmented Neutrophils % 73.1 %
[2017-04-24 03:46] LABS: BUN/Creatinine Ratio 18 (6-26); Blood Urea Nitrogen 15 mg/dL (8-26); Calcium 9.5 mg/dL (8.6-10.8); Carbon Dioxide 23 mEq/L (19-29); Chloride 103 mEq/L (98-109); Glucose 111 mg/dL (70-99); Osmolality,Calculated 284 (280-300); Potassium 4.5 mEq/L (3.5-4.5); Sodium 136 mEq/L (136-145); eGFR For African Americans > 60 (> 60); eGFR For Non-African Americans > 60 (> 60)
[2017-04-24] MEDS: *HR* Heparin 5,000 UNIT/ML VIAL SQ SCH (06:01)
[2017-04-24 07:56] VITALS: BP 127/77
[2017-04-24] MEDS: *HR* Ticagrelor 90 MG TABLET PO SCH (08:46)
[2017-04-24] MEDS: Metoprolol XL (24 HR) Succ 25 MG TAB.ER.24H PO SCH (08:46)
[2017-04-24] MEDS ORDERED: Metoprolol XL (24 HR) Succ 25 MG TAB.ER.24H PO SCH (09:00)
[2017-04-24] MEDS ORDERED: Aspirin 81 MG TAB.CHEW PO SCH (09:00)
--- NOTE | 2017-04-24 09:51 | Discharge Summary ---
Date of Encounter: 04/24/17 Time of Encounter: 09:47 - Discharge Diagnosis (1) ST elevation myocardial infarction (STEMI) Priority: Primary Status: Acute Qualifiers: Involved coronary artery: other inferior wall coronary artery Qualified Code(s): I21.19 - ST elevation (STEMI) myocardial infarction involving other coronary artery of inferior wall (2) S/P appendectomy Priority: Secondary Status: Acute - Discharge Medications Prescriptions: Nitroglycerin 0.4 mg SL Q5MIN PRN #30 PRN Reason: Chest Pain Aspirin 81 mg PO DAILY #30 Metoprolol XL (24 HR) Succ [Toprol Xl] 25 mg PO DAILY #30 Rosuvastatin [Crestor] 40 mg PO HS #30 tab Ticagrelor [Brilinta] 90 mg PO BID #60 tab Home Medications: Calcium Carbonate [Tums] 1,000 mg PO Q4HR PRN 04/14/17 [History] Acetaminophen [Tylenol] 650 mg PO Q6HR PRN tab 04/19/17 [Rx] Ciprofloxacin [Cipro] 500 mg PO BID #10 tab 04/19/17 [Rx] OxyCODONE/APAP 5/325 [Percocet 5/325 MG] 1 each PO Q6H PRN #10 tab 04/19/17 [Rx] Aspirin 81 mg PO DAILY #30 04/24/17 [Rx] Metoprolol XL (24 HR) Succ [Toprol Xl] 25 mg PO DAILY #30 04/24/17 [Rx] Nitroglycerin 0.4 mg SL Q5MIN PRN #30 04/24/17 [Rx] Rosuvastatin [Crestor] 40 mg PO HS #30 tab 04/24/17 [Rx] Ticagrelor [Brilinta] 90 mg PO BID #60 tab 04/24/17 [Rx] Allergies/Adverse Reactions: Allergies No Known Allergies Allergy (Verified 04/14/17 04:14) Procedures/tests Complete & Pending: Procedures Performed prior 72 hours Category Date Time Status abdominal/pelvis CT with contrast [CT abd pelvis w iv Cat Scan 04/23/17 15:15 Completed and oral] [CT] Routine ECG 12 lead ECG [ECG] Routine Y 04/22/17 12:36 Completed Date of admission: 04/22/17 12:07 Primary care physician: PCP NONE Discharging clinician: Sebastien Anderson Anticipated date of discharge: 04/24/17 - Patient Status Disposition: Home, Self-Care Condition: Fair Overall status at discharge: patient is progressing back to baseline - Discharge Instructions Follow Up With: NONE,PCP [Primary Care Provider] - Additional Instructions: RISK FACTORS: STOP SMOKING: If you smoke, STOP. Smoking or tobacco use significantly increases your risk of heart disease because nicotine causes the arteries to narrow or constrict. It also causes fats to stick to the artery. Your chances of having a heart attack are greatly increased if you continue to smoke. For more information, call the education line for smoking cessation 2-943-AYBAATS EAT A LOW FAT/CHOLESTEROL/SODIUM DIET: This diet may help reduce your chances of having a heart attack. LIFTING: With affected extremity: Avoid bending, pushing off and lifting more than 2 pounds for 24 hours The following 48 hours, avoid lifting anything more than 5 pounds Avoid strenuous activity or repetitive motions ACTIVITY: You may walk or climb stairs as tolerated You can resume sexual activity as tolerated In general, you are encouraged to engage in a minimum of 30 minutes or more of moderate intensity physical activity, such as brisk walking, daily or at least 3 -4 times weekly BATHING Do not submerge the site into water (bath tub, hot tub, swimming pool, dishes) for 1 week. This can be a source for infection into the blood stream. You may shower after 24 hours SITE CARE: After 24 hours, you may remove the dressing and leave the site open to air. Keep the site clean and dry. Clean gently and pat dry. You can expect bruising and tenderness that gradually resolve within a week or two. Return to work as instructed per your physician Resume driving as instructed per physician Keep all scheduled follow up appointments Resume medications as instructed IMPORTANT: If prescribed a Platelet Aggregation Inhibitor such as, Plavix, Brilinta or Effient: Duration of therapy is minimum one year These medications are often used in combination with Aspirin in prevention of future heart attacks Never discontinue unless consult with your Motor Expert STROKE (CVA) Risk factors for a stroke are: Age, cigarette smoking, diabetes, excessive alcohol consumption, family history, high blood pressure, overweight, physical inactivity, prior stroke, heart attack, diagnosis of carotid artery stenosis or other artery disease. Warning signs: Sudden numbness or weakness of the face, arm or leg; especially on one side of the body, sudden confusion, trouble speaking or understanding, sudden trouble seeing in one or both eyes, sudden trouble walking, dizziness, loss of balance or coordination, sudden severe headache with no cause. Call 911 or go to the Emergency Room. CONGESTIVE HEART FAILURE: If you have been diagnosed with Congestive Heart Failure (CHF) and your symptoms return, make an appointment with your physician Weigh yourself daily. Notify your physician if you have a weight gain of two or more pounds in one day or five or more pounds in one week. If you experience any difficulty breathing, please call 911 BLEEDING: Although the risk of bleeding is minimal, it can happen. If you have any bleeding from the site, apply firm pressure above the puncture site for 10-15 minutes. If the bleeding does not stop, continue manual pressure and call 911 Contact [facility] ( ) if: You develop a fever greater than 101 degrees Fahrenheit Your site becomes reddened or has any drainage You have an increase in pain or burning at the site or if a large knot forms at the site. If you experience chest pain, shortness of breath, dizziness, or extreme tiredness, stop the activity and rest. Please notify [facility] office if you experience any of these symptoms and they are not relieved by rest please call 911! - Diet and Activity Activity: increase activity as tolerated Diet: low fat, low cholesterol, low salt diet - Hospital Course Hospital course: Mr. Muse is a 56 year old male with no significant PMH prior to hospitalization that presented 04/22/17 as a STEMI. Taken for emergent LHC, revealed 100% mRCA with DENITA x 2 placed. DAPT (ASA and Brilinta) uninterrupted x 1 year. Pt verbalizes understanding. BB and Statin started. Echo shows EF 55%, wall motion not well visualized. Mild LVDD. Pt denies chest pain or dyspnea. Right radial access site healing well. No bleeding, hematoma or ecchymosis noted. Labs and vitals stable. Troponin negative x 1. He was S/P appendectomy last week. Mild pain at site. Mick noted, some have fallen out with drainage. On PO Cipro. Follow-up with Dr. Cruz as outpt. Of note, CT of ABD/Pelvis was ordered by Dr. Sinning with no significant abnormalities. Pt being discharged home in stable condition. Follow-up as outpt in 1 week. - Time Spent with Patient Total time spent providing and/or coordinating discharge services: 30 minutes Physical Examination Vital Signs, Last 4 Hours Temp Pulse Resp BP Pulse Ox 04/24/17 07:51 99.2 F 78 16 127/77 93 04/24/17 07:20 77 Vital Signs Temp Pulse Resp BP Pulse Ox 04/24/17 07:51 99.2 F 78 16 127/77 93 04/24/17 07:20 77 04/24/17 05:14 98.6 F 76 16 114/61 92 04/24/17 00:33 98.3 F 77 18 119/75 95 04/23/17 19:52 80 12 123/80 97 04/23/17 19:32 98.6 F 04/23/17 18:00 77 18 124/63 96 04/23/17 16:00 98.6 F 76 20 136/84 96 04/23/17 15:26 91 04/23/17 14:00 79 20 133/87 97 04/23/17 12:00 98.6 F 80 20 143/85 96 04/23/17 11:34 80 04/23/17 10:00 80 18 146/86 97 Intake and Output 04/23/17 04/24/17 04/24/17 23:59 07:59 15:59 Intake Total 0 / 0 480 / 480 Output Total 0 / 0 300 / 300 Balance 0 / 0 -300 / -300 480 / 480 Intake: Oral 0 / 0 480 / 480 Output: Urine 0 / 0 300 / 300 Stool 0 / 0 Other: Meal Breakfast Percent of Meal Consumed 80% # Voids 0 # Bowel Movements 0 Weight 88.2 kg Patient Weight 04/24/17 23:59 Weight 88.2 kg General: Conversant, No Apparent Distress HEENT: Atraumatic, Normocephaly, Mucus Membranes Moist Neck: No JVD, Normal carotid pulses Cardiac: Reg Rate and Rhythm, Normal S1 and S2, No Murmur Lungs: Normal Breath Sounds, No Wheeze, Rales, Rhonchi Neuro: Alert and responsive, No focal deficits noted Abdomen: Soft, Non-Tender Skin: No rashes noted on visualized skin Musculoskeletal: No Chest Wall Tenderness Extremities: No Clubbing, No Cyanosis, No Edema, Normal Pulses
--- NOTE | 2017-04-24 10:50 | General Surgery Progress Note ---
Date of Encounter: 04/24/17 Time of Encounter: 10:44 Subjective Narrative: General Surgery - post op follow up - POD#10, acute perforated appendicitis Brief history: 56-year-old male referred to surgical services on 04/14/17 after presenting to emergency department with acute onset right lower quadrant abdominal pain. Diagnosis of acute appendicitis prompted surgical consultation and intervention. At the time of surgery, an acutely perforated appendicitis was encountered. The patient 's had an unremarkable recovery only to return to [facility] ED with acute chest pain/STEMI requiring intervention. CT abdomen and pelvis, completed yesterday, demonstrated no significant intra- abdominal findings. The expected post op changes were described, no abscess or free air was identified. Mild thickening of the posteromedial cecal wall is described and expected related to the surgery completed 04/14/2017. The patient's transverse incision is draining brown purulent material laterally. The wound was cleansed with Betadine and the redressed with dry sterile gauze. The medial portion of the wound is clean and well healed. Skin isrrael were removed, steri strips applied. Recommendations Patient may cleanse the wound with soap and water Dry sterile gauze dressing as needed Follow-up my office, 04/29/2017; patient to call office Wednesday to make appointment Prescription for cephalexin 500 mg po BID #28 Objective Vital Signs - Last 8 Hours Temp Pulse Resp BP Pulse Ox 04/24/17 07:51 99.2 F 78 16 127/77 93 04/24/17 07:20 77 04/24/17 05:14 98.6 F 76 16 114/61 92 Intake and Output 04/23/17 04/24/17 04/24/17 23:59 07:59 15:59 Intake Total 0 / 0 480 / 480 Output Total 0 / 0 300 / 300 Balance 0 / 0 -300 / -300 480 / 480 Intake: Oral 0 / 0 480 / 480 Output: Urine 0 / 0 300 / 300 Stool 0 / 0 Other: Meal Breakfast Percent of Meal Consumed 80% # Voids 0 # Bowel Movements 0 Weight 88.2 kg Patient Weight 04/24/17 23:59 Weight 88.2 kg - Labs 04/24/17 03:10 04/24/17 03:10 Diabetes panel 04/24/17 Range/Units 03:10 Sodium 136 (136-145) mEq/L Potassium 4.5 (3.5-4.5) mEq/L Chloride 103 (98-109) mEq/L Carbon Dioxide 23 (19-29) mEq/L BUN 15 (8-26) mg/dL Creatinine 0.84 (0.72-1.25) mg/dL Glucose 111 H (70-99) mg/dL Calcium 9.5 (8.6-10.8) mg/dL Calcium panel 04/24/17 Range/Units 03:10 Calcium 9.5 (8.6-10.8) mg/dL Pituitary panel 04/24/17 Range/Units 03:10 Sodium 136 (136-145) mEq/L Potassium 4.5 (3.5-4.5) mEq/L Chloride 103 (98-109) mEq/L Carbon Dioxide 23 (19-29) mEq/L BUN 15 (8-26) mg/dL Creatinine 0.84 (0.72-1.25) mg/dL Glucose 111 H (70-99) mg/dL Calcium 9.5 (8.6-10.8) mg/dL Adrenal panel 04/24/17 Range/Units 03:10 Sodium 136 (136-145) mEq/L Potassium 4.5 (3.5-4.5) mEq/L Chloride 103 (98-109) mEq/L Carbon Dioxide 23 (19-29) mEq/L BUN 15 (8-26) mg/dL Creatinine 0.84 (0.72-1.25) mg/dL Glucose 111 H (70-99) mg/dL Calcium 9.5 (8.6-10.8) mg/dL Consult Discharge Plan - Plan Instructions: Myocardial Infarction (DC), Appendicitis (DC) Additional Instructions: RISK FACTORS: STOP SMOKING: If you smoke, STOP. Smoking or tobacco use significantly increases your risk of heart disease because nicotine causes the arteries to narrow or constrict. It also causes fats to stick to the artery. Your chances of having a heart attack are greatly increased if you continue to smoke. For more information, call the education line for smoking cessation 7-552-KJODQGB EAT A LOW FAT/CHOLESTEROL/SODIUM DIET: This diet may help reduce your chances of having a heart attack. LIFTING: Avoid lifting anything more than 10 pounds for 5-7 days Prior to straining, laughing, sneezing and/or coughing, apply manual pressure directly over insertion site. ACTIVITY: You may walk or climb stairs as tolerated You can resume sexual activity as tolerated In general, you are encouraged to engage in a minimum of 30 minutes or more of moderate intensity physical activity, such as brisk walking, daily or at least 3 -4 times weekly BATHING Do not submerge the site into water (bath tub, hot tub, swimming pool) for 1 week. This can be a source for infection into the blood stream. You may shower after 24 hours SITE CARE: After 24 hours, you may remove the dressing and leave the site open to air. Keep the site clean and dry. Clean gently and pat dry. You can expect bruising and tenderness that gradually resolve within a week or two. Return to work as instructed per your physician Resume driving as instructed per physician Keep all scheduled follow up appointments Resume medications as instructed IMPORTANT: If prescribed a Platelet Aggregation Inhibitor such as, Plavix, Brilinta or Effient: Duration of therapy is minimum one year These medications are often used in combination with Aspirin in prevention of future heart attacks Never discontinue unless consult with your Senior Test Engineer STROKE (CVA) Risk factors for a stroke are: Age, cigarette smoking, diabetes, excessive alcohol consumption, family history, high blood pressure, overweight, physical inactivity, prior stroke, heart attack, diagnosis of carotid artery stenosis or other artery disease. Warning signs: Sudden numbness or weakness of the face, arm or leg; especially on one side of the body, sudden confusion, trouble speaking or understanding, sudden trouble seeing in one or both eyes, sudden trouble walking, dizziness, loss of balance or coordination, sudden severe headache with no cause. Call 911 or go to the Emergency Room. CONGESTIVE HEART FAILURE: If you have been diagnosed with Congestive Heart Failure (CHF) and your symptoms return, make an appointment with your physician Weigh yourself daily. Notify your physician if you have a weight gain of two or more pounds in one day or five or more pounds in one week. If you experience any difficulty breathing, please call 911 BLEEDING: Although the risk of bleeding is minimal, it can happen. If you have any bleeding from the site, apply firm pressure above the puncture site for 10-15 minutes. If the bleeding does not stop, continue manual pressure and call 911 Contact your physician if: You develop a fever greater than 101 degrees Fahrenheit Your site becomes reddened or has any drainage You have an increase in pain or burning at the site or if a large knot forms at the site. If you experience chest pain, shortness of breath, dizziness, or extreme tiredness, stop the activity and rest. Please notify your physicians office if you experience any of these symptoms and they are not relieved by rest please call 911!RISK FACTORS: STOP SMOKING: If you smoke, STOP. Smoking or tobacco use significantly increases your risk of heart disease because nicotine causes the arteries to narrow or constrict. It also causes fats to stick to the artery. Your chances of having a heart attack are greatly increased if you continue to smoke. For more information, call the education line for smoking cessation 3-914-SHIYFNI EAT A LOW FAT/CHOLESTEROL/SODIUM DIET: This diet may help reduce your chances of having a heart attack. LIFTING: With affected extremity: Avoid bending, pushing off and lifting more than 2 pounds for 24 hours The following 48 hours, avoid lifting anything more than 5 pounds Avoid strenuous activity or repetitive motions ACTIVITY: You may walk or climb stairs as tolerated You can resume sexual activity as tolerated In general, you are encouraged to engage in a minimum of 30 minutes or more of moderate intensity physical activity, such as brisk walking, daily or at least 3 -4 times weekly BATHING Do not submerge the site into water (bath tub, hot tub, swimming pool, dishes) for 1 week. This can be a source for infection into the blood stream. You may shower after 24 hours SITE CARE: After 24 hours, you may remove the dressing and leave the site open to air. Keep the site clean and dry. Clean gently and pat dry. You can expect bruising and tenderness that gradually resolve within a week or two. Return to work as instructed per your physician Resume driving as instructed per physician Keep all scheduled follow up appointments Resume medications as instructed IMPORTANT: If prescribed a Platelet Aggregation Inhibitor such as, Plavix, Brilinta or Effient: Duration of therapy is minimum one year These medications are often used in combination with Aspirin in prevention of future heart attacks Never discontinue unless consult with your Senior Test Engineer STROKE (CVA) Risk factors for a stroke are: Age, cigarette smoking, diabetes, excessive alcohol consumption, family history, high blood pressure, overweight, physical inactivity, prior stroke, heart attack, diagnosis of carotid artery stenosis or other artery disease. Warning signs: Sudden numbness or weakness of the face, arm or leg; especially on one side of the body, sudden confusion, trouble speaking or understanding, sudden trouble seeing in one or both eyes, sudden trouble walking, dizziness, loss of balance or coordination, sudden severe headache with no cause. Call 911 or go to the Emergency Room. CONGESTIVE HEART FAILURE: If you have been diagnosed with Congestive Heart Failure (CHF) and your symptoms return, make an appointment with your physician Weigh yourself daily. Notify your physician if you have a weight gain of two or more pounds in one day or five or more pounds in one week. If you experience any difficulty breathing, please call 911 BLEEDING: Although the risk of bleeding is minimal, it can happen. If you have any bleeding from the site, apply firm pressure above the puncture site for 10-15 minutes. If the bleeding does not stop, continue manual pressure and call 911 Contact [facility] ( ) if: You develop a fever greater than 101 degrees Fahrenheit Your site becomes reddened or has any drainage You have an increase in pain or burning at the site or if a large knot forms at the site. If you experience chest pain, shortness of breath, dizziness, or extreme tiredness, stop the activity and rest. Please notify [facility] office if you experience any of these symptoms and they are not relieved by rest please call 911! Referrals: NONE,PCP [Primary Care Provider] - Prescriptions: Nitroglycerin 0.4 mg SL Q5MIN PRN #30 PRN Reason: Chest Pain Aspirin 81 mg PO DAILY #30 Metoprolol XL (24 HR) Succ [Toprol Xl] 25 mg PO DAILY #30 Rosuvastatin [Crestor] 40 mg PO HS #30 tab Ticagrelor [Brilinta] 90 mg PO BID #60 tab
--- NOTE | 2017-04-26 16:07 | Invasive Diagnostic Lab ---
Name: Shmuel Muse Date of Study: 04/22/2017 Date: 1960 Ht: 175.0 cm /68.9 in Medical Record#: [id number] Age: 56 Wt: 88. kg / 194.01 lb Account/Order#: [id number] Gender: Male BSA: 2.04 Order #: [id number] Fluoro Dose: 600 mGy BMI: 28.73 Procedure Physician: Crow Wheatley MD, [facility] Referring MD: Referring MD: Procedures Performed: PCI of Acute NH LEFT HEART CATH Indications: STEMI Impressions: There is severe one vessel coronary artery disease. The left ventricle is normal and has normal contractility EF 60% Patient had successful PTCA/Drug-Eluting Stent placement in the mid RCA. Recommendations: Optimal medical therapy of patient's disease. Aggressive risk factor modification. Patient being referred for cardiac rehab. History/Risk Factors: APPY 04/14 Procedure Access obtained in the right Radial artery by percutaneous puncture Patient had successful PTCA/Drug-Eluting Stent placement in the mid RCA. Complications: None Contrast: Isovue 127ml Closure Device: Mechanical Compression Hemodynamics: Pressures Site Systolic/ A Wave Diastolic/ V Wave End Diastolic/ Mean HR AO 132 99 115 87 AO 165 37 99 95 AO 140 79 106 94 AO 117 66 90 91 AO 148 82 111 70 LV 145 0 14 72 LV 164 4 14 80 AO 157 79 111 74 LV Ventriculography Ejection Method: LV Gram Ejection Fraction: 60% Wall Motion: WEBBER Anterobasal Normal Anterolateral Normal Apical: Normal Inferoapical Mild Hypokinesis Inferobasal Normal Coronary Dominance: right Lesion Findings/Interventions * Left Main Coronary Artery The LMCA is angiographically free of disease. * Left Anterior Descending There is a 30% stenosis in the Proximal LAD. * Circumflex There is a 20% stenosis in the 1st Marginal. * Right Coronary Artery There is a 50 mm long, 100% stenosis in the Mid RCA. The lesion has a VINEET flow of 0 and has thrombus present. An intervention was performed on the Mid RCA with a final stenosis of 0%. There were no lesion complications. The final VINEET flow was 3. Interventional Device(s) Vessel Segment Type Name Diameter (mm) Length (mm) Mid RCA Balloon Emerge Monorail 2.5 15 Mid RCA Drug Eluting Stent Synergy 3 38 Mid RCA Drug Eluting Stent Synergy 3.5 12 Mid RCA Balloon NC Emerge 4 6 Mid RCA Balloon NC Trek Rx 3.5 15 Updated by Geneva Sites, RT (R) on 04/22/2017 12:44:36 PM Crow Wheatley MD, FACC electronically signed on 04/26/2017 4:01:19 PM with status of Final
== END 2017-04-24 11:35 | disposition home or self-care (01) | DRG 247 ==
LOC: EMEROO 11:19 → ICNU 11:55 → 2NNU 04-23 22:53
PROVIDERS: ADMIT Emergency Medicine; ATTEND Emergency Medicine